=== PATIENT | male | born 1950 | race Caucasian/White ===

== ENCOUNTER 2017-02-13 08:38 | Inpatient (IN) | payer MEDICARE, OTHER ==
[2017-02-13] MEDS ORDERED: Sodium Chloride 0.9% 10 ML Syringe FLUSH PRN (09:21)
[2017-02-13] MEDS ORDERED: cefTRIAXone 2 GM in Sodium Chloride 0.9% 100 ML IV ONE (09:24)
[2017-02-13] MEDS ORDERED: HYDROmorphone 1 MG/ML Syringe IVPUSH ONE (09:24)
[2017-02-13] MEDS: Sodium Chloride 0.9% 1,000 ML IV SCH ×4 (09:45→22:33)
[2017-02-13] MEDS ORDERED: fentaNYL 100 MCG/2 ML SDV IVPUSH ONE (10:55)
--- NOTE | 2017-02-13 11:04 | CR ---
Right wrist: Two views of the right wrist were obtained. Comparison: No prior wrist exam. Severe joint space narrowing is noted off the distal navicular bone. Other joint spaces are preserved. Minimal calcifications are seen in the area of the triangular fibrocartilage which are felt to be incidental. Joint space narrowing is noted within the MCP joints of the second and third digits. Soft tissue swelling is identified posteriorly. No acute fracture or other bony abnormality is seen. Impression: 1. Degenerative change as noted above. 2. Diffuse soft tissue swelling seen posteriorly. Diagnostic code #3
--- NOTE | 2017-02-13 11:20 | US ---
Right upper extremity venous ultrasound: Duplex and color flow imaging was obtained of the right internal jugular, subclavian, axillary, brachial, basilic, cephalic, radial and ulnar veins. Technologist's note: Patient unable to flex or tolerate compression without moving, suboptimal augment, suboptimal visualization of radial and ulnar veins due to patient's inability to hold still Findings: Normal compression, augmentation and phasic flow is seen within other veins other than the radial and ulnar. Impression: 1. Poorly seen radial and ulnar veins as noted above. 2. Other portions of the right upper extremity venous ultrasound appear unremarkable. No findings of venous thrombosis is seen. Diagnostic code #2
[2017-02-13] MEDS ORDERED: Ketorolac 30 MG/ML SDV IVPUSH ONE (11:36)
--- NOTE | 2017-02-13 13:12 | EDM.PDOC ---
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 Right Hand Pain Score (Numeric/FACES): 9 - Related Data Allergies Allergy/AdvReac Type Severity Reaction Status Date / Time bee venom protein (honey bee) Allergy Swelling Verified 02/13/17 09:04 Home Meds: Home Meds LORazepam [LORazepam] 1 mg PO DAILY 02/13/17 [History] PARoxetine HCl [Paxil] 20 mg PO DAILY 02/13/17 [History] Past Medical History HEENT History: Reports: Impaired Vision Other HEENT History: wears glasses Gastrointestinal History: Reports: Other (See Below) Other Gastrointestinal History: IBS - Past Surgical History HEENT Surgical History: Reports: Tonsillectomy Musculoskeletal Surgical History: Reports: Arthroscopic Knee, Shoulder Surgery Other Musculoskeletal Surgeries/Procedures:: 3 shoulder surgery Social & Family History - Tobacco Use Smoking Status *Q: Current Every Day Smoker Years of Tobacco use: 50 Packs/Tins Daily: 1 - Caffeine Use Caffeine Use: Reports: Coffee, Soda - Recreational Drug Use Recreational Drug Use: No Course - Vital Signs Last Recorded V/S: Last Vital Signs Temp 99.5 F 02/13/17 08:59 Pulse 89 02/13/17 08:59 Resp 18 02/13/17 08:59 BP 149/115 H 02/13/17 08:59 Pulse Ox 91 L 02/13/17 08:59 - Orders/Labs/Meds Orders: Active Orders 24 hr Category Date Time Status Peripheral IV Care [RC] . DIRECTED Care 02/13/17 09:22 Active CULTURE BLOOD [BC] Stat Lab 02/13/17 11:00 Received CULTURE BLOOD [BC] Stat Lab 02/13/17 11:20 Received Sodium Chloride 0.9% [Normal Saline] 1,000 ml Med 02/13/17 09:30 Active IV ASDIRECTED Sodium Chloride 0.9% [Saline Flush] Med 02/13/17 09:21 Active 10 ml FLUSH ASDIRECTED PRN Blood Culture x2 Reflex Set [OM.PC] Stat Oth 02/13/17 09:23 Ordered Peripheral IV Insertion Adult [OM.PC] Stat Oth 02/13/17 09:21 Ordered Medication Orders Sodium Chloride (Normal Saline) 1,000 mls @ 125 mls/hr IV ASDIRECTED TONY Last Admin: 02/13/17 09:45 Dose: 125 mls/hr Sodium Chloride (Saline Flush) 10 ml FLUSH ASDIRECTED PRN PRN Reason: Keep Vein Open Last Admin: 02/13/17 09:43 Dose: 10 ml Labs: Laboratory Tests 02/13/17 02/13/17 02/13/17 Range/Units 09:30 09:30 09:30 WBC 14.58 H (4.23-9.07) K/mm3 RBC 4.65 (4.63-6.08) M/mm3 Hgb 14.2 (13.7-17.5) gm/L Hct 42.1 (40.1-51.0) % MCV 90.5 (79.0-92.2) fl MCH 30.5 (25.7-32.2) pg MCHC 33.7 (32.2-35.5) g/dl RDW Std Deviation 43.8 (35.1-43.9) fL Plt Count 190 (163-337) K/mm3 MPV 9.2 L (9.4-12.3) fl Neut % (Auto) 93.0 H (34.0-67.9) % Lymph % (Auto) 1.5 L (21.8-53.1) % [place] % (Auto) 5.1 L (5.3-12.2) % Eos % (Auto) 0 L (0.8-7.0) Baso % (Auto) 0.1 (0.1-1.2) % Neut # (Auto) 13.57 H (1.78-5.38) K/mm3 Lymph # (Auto) 0.22 L (1.32-3.57) K/mm3 [place] # (Auto) 0.74 (0.30-0.82) K/mm3 Eos # (Auto) 0.00 L (0.04-0.54) K/mm3 Baso # (Auto) 0.01 (0.01-0.08) K/mm3 Manual Slide Review Abnormal smear ESR 3 (0-15) mm/hr Sodium 141 (136-145) mEq/L Potassium 4.2 (3.5-5.1) mEq/L Chloride 107 (98-107) mEq/L Carbon Dioxide 25 (21-32) mEq/L Anion Gap 13.2 (5-15) BUN 21 H (7-18) mg/dL Creatinine 1.2 (0.7-1.3) mg/dL Est Cr Clr Drug Dosing 63.62 mL/min Estimated GFR (MDRD) > 60 (>60) mL/min BUN/Creatinine Ratio 17.5 (14-18) Glucose 132 H (80-115) mg/dL Calcium 9.1 (8.5-10.1) mg/dL Total Bilirubin 1.1 H (0.2-1.0) mg/dL AST 22 (15-37) U/L ALT 33 (16-63) U/L Alkaline Phosphatase 52 (46-116) U/L C-Reactive Protein < 0.2 (<1.0) mg/dL Total Protein 6.8 (6.4-8.2) g/dl Albumin 4.1 (3.4-5.0) g/dl Globulin 2.7 gm/dL Albumin/Globulin Ratio 1.5 (1-2) Meds: Medications Generic Name Dose Route Start Last Admin Trade Name Freq PRN Reason Stop Dose Admin Sodium Chloride 1,000 mls @ 125 mls/hr 02/13/17 09:30 02/13/17 09:45 Normal Saline IV 125 mls/hr ASDIRECTED TONY Administration Sodium Chloride 10 ml 02/13/17 09:21 02/13/17 09:43 Saline Flush FLUSH 10 ml ASDIRECTED PRN Administration Keep Vein Open Discontinued Medications Generic Name Dose Route Start Last Admin Trade Name Aisha PRN Reason Stop Dose Admin Fentanyl 100 mcg 02/13/17 10:55 02/13/17 11:15 Sublimaze IVPUSH 02/13/17 10:56 100 mcg ONETIME ONE Administration Hydromorphone HCl 1 mg 02/13/17 09:24 02/13/17 09:40 Dilaudid IVPUSH 02/13/17 09:25 1 mg ONETIME ONE Administration Ceftriaxone Sodium 2 gm/ 100 mls @ 200 mls/hr 02/13/17 09:24 02/13/17 09:45 Sodium Chloride IV 02/13/17 09:53 200 mls/hr ONETIME ONE Administration Ketorolac Tromethamine 30 mg 02/13/17 11:36 11/29/17 11:42 Toradol IVPUSH 02/13/17 11:37 30 mg ONETIME ONE Administration Departure - Discharge Information Referrals: Beck Zhang MD [Primary Care Provider] -
--- NOTE | 2017-02-13 13:59 | PCM.HP ---
<BrendonMartine M - Last Filed: 02/14/17 18:07> H&P History of Present Illness - General Date of Service: 02/13/17 Source of Information: Patient - History of Present Illness Initial Comments - Free Text/Narative: Jw is a 66yo male admitted to inpatient status from the ED this afternoon after presenting with acute onset of right hand and wrist swelling and pain last evening around 8pm. He did not get much sleep last night due to the pain. He denies f/c/s, no n/v/d. He is very tired and fatigued but no other systemic symptoms or constitutional symptoms. He tells me he is unsure what happened, no falls or scratches recently, however he has had some old abrasions on his hand for a while now, also unsure of how he got them. He plays tennis regularly but no recent falls or accidents with that. He has hx of anxiety for which he takes prozac and ativan PRN. He smokes around a pack of cigarettes per day. Patient is Full Code status PCP is Dr. Zhang with [facility] Onset of Symptoms: Reports: Gradual Duration of Symptoms: Reports: Day(s): (2) Location: Reports: Upper Extremity, Right (dorsum of right hand) Quality: Reports: Throbbing Severity: Moderate Improves with: Reports: None Worsens with: Reports: Movement Right Hand Pain Score (Numeric/FACES): 9 - Related Data Allergies/Adverse Reactions: Allergies Allergy/AdvReac Type Severity Reaction Status Date / Time bee venom protein (honey bee) Allergy Swelling Verified 02/13/17 09:04 Home Medications: Home Meds LORazepam [LORazepam] 1 mg PO DAILY 02/13/17 [History] PARoxetine HCl [Paxil] 20 mg PO DAILY 02/13/17 [History] Past Medical History HEENT History: Reports: Impaired Vision Other HEENT History: wears glasses Gastrointestinal History: Reports: Other (See Below) Other Gastrointestinal History: IBS - Past Surgical History HEENT Surgical History: Reports: Tonsillectomy Musculoskeletal Surgical History: Reports: Arthroscopic Knee, Shoulder Surgery Other Musculoskeletal Surgeries/Procedures:: 3 shoulder surgery Social & Family History - Tobacco Use Smoking Status *Q: Current Every Day Smoker Years of Tobacco use: 50 Packs/Tins Daily: 1 - Caffeine Use Caffeine Use: Reports: Coffee, Soda - Recreational Drug Use Recreational Drug Use: No H&P Review of Systems - Review of Systems: Review Of Systems: See Below General: Denies: Fever, Chills, Malaise, Weakness, Fatigue HEENT: Reports: No Symptoms Pulmonary: Reports: No Symptoms. Denies: Shortness of Breath, Cough Cardiovascular: Reports: No Symptoms. Denies: Chest Pain, Palpitations, Dyspnea on Exertion Gastrointestinal: Reports: No Symptoms. Denies: Diarrhea, Vomiting Genitourinary: Reports: No Symptoms Musculoskeletal: Reports: Arm Pain, Hand Pain Skin: Reports: Erythema Psychiatric: Reports: No Symptoms Neurological: Reports: No Symptoms Exam - Exam Exam: See Below - Vital Signs Vital Signs: Last Vital Signs Temp 99.5 F 02/13/17 08:59 Pulse 89 02/13/17 08:59 Resp 18 02/13/17 08:59 BP 149/115 H 02/13/17 08:59 Pulse Ox 91 L 02/13/17 08:59 Weight: 83.915 kg - Exam General: Alert, Oriented, Cooperative HEENT: Conjunctiva Clear, EOMI, Mucosa Moist & [place], Pupils Equal Neck: Supple Lungs: Clear to Auscultation, Normal Respiratory Effort Cardiovascular: Regular Rate, Regular Rhythm GI/Abdominal Exam: Normal Bowel Sounds, Soft, Non-Tender (Male) Exam: Deferred Rectal (Males) Exam: Deferred Back Exam: Normal Inspection Extremities: No Pedal Edema, Arm Pain, Other (right arm is in a volar splint- put on in ED- base of fingers are swollen and with erythema. CMS is + distally and = bilat. ) Peripheral Pulses: 2+: Radial (L), Dorsalis Pedis (L), Dorsalis Pedis (R) Skin: Warm, Dry Neurological: Cranial Nerves Intact Neuro Extensive - Mental Status: Alert, Oriented x3, Normal Mood/Affect, Normal Cognition, Memory Intact Neuro Extensive - Motor, Sensory, Reflexes: CN II-XII Intact, Normal Gait Psychiatric: Alert, Normal Affect, Normal Mood - Patient Data Result Diagrams: 02/14/17 05:55 02/14/17 05:55 *Q Meaningful Use (ADM) - VTE *Q VTE Criteria *Q: - Stroke *Q Stroke Criteria *Q: - AMI *Q AMI Criteria *Q: - Problem List (1) Cellulitis of hand SNOMED Code(s): 12152612 ICD Code: L03.119 - CELLULITIS OF UNSPECIFIED PART OF LIMB Status: Acute Priority: High Current Visit: Yes (2) Tobacco use disorder SNOMED Code(s): 271669782 ICD Code: F17.200 - NICOTINE DEPENDENCE, UNSPECIFIED, UNCOMPLICATED Status : Chronic Priority: Medium Current Visit: Yes Problem List Initiated/Reviewed/Updated: Yes Orders Last 24hrs: Medication Orders Sodium Chloride (Normal Saline) 1,000 mls @ 125 mls/hr IV ASDIRECTED TONY Last Admin: 02/13/17 09:45 Dose: 125 mls/hr Sodium Chloride (Saline Flush) 10 ml FLUSH ASDIRECTED PRN PRN Reason: Keep Vein Open Last Admin: 02/13/17 09:43 Dose: 10 ml Assessment/Plan Comment:: I/P: Cellulitis of Rt hand -IV Rocephin rec'd in ED, continue with this Q24 hours -Florastor -Xray of wrist obtained with degenerative changes noted and diffuse soft tissue swelling posteriorly -Venous doppler of Rt UE in ED and was negative for blood clot/DVT -Dr. Bailey, Orthopedics was consulted in ED and did not feel there was tendon involvement -Elevate -Pain medications and NSAIDS PRN Tobacco Use Disorder -Smoking cessation advised/education -Nicotine patch Chronic conditions: IBS by hx Other: GI prophylax with pepcid DVT prohylax with Teds/ambulation CM/SW for assist with dc planning Patient is full code status. PCP is Dr. Zhang with [facility] in [place]. <Nancy Martin M - Last Filed: 02/14/17 19:07> H&P History of Present Illness - General Admit Problem/Dx: Admission Diagnosis/Problem Admission Diagnosis/Problem Cellulitis and abscess of hand Exam - Vital Signs Vital Signs: Last Vital Signs Temp 36.4 C 02/14/17 15:51 Pulse 81 02/14/17 15:51 Resp 18 02/14/17 15:51 BP 108/61 02/14/17 15:51 Pulse Ox 93 L 02/14/17 15:51 - Patient Data Lab Results Last 24 hrs: Laboratory Results - last 24 hr 02/13/17 02/14/17 02/14/17 Range/Units 18:28 05:55 05:55 WBC 11.96 H (4.23-9.07) K/mm3 RBC 3.99 L (4.63-6.08) M/mm3 Hgb 12.3 L (13.7-17.5) gm/L Hct 36.5 L (40.1-51.0) % MCV 91.5 (79.0-92.2) fl MCH 30.8 (25.7-32.2) pg MCHC 33.7 (32.2-35.5) g/dl RDW Std Deviation 44.8 H (35.1-43.9) fL Plt Count 136 L (163-337) K/mm3 MPV 9.6 (9.4-12.3) fl Neut % (Auto) 86.7 H (34.0-67.9) % Lymph % (Auto) 4.0 L (21.8-53.1) % [place] % (Auto) 6.3 (5.3-12.2) % Eos % (Auto) 0.3 L (0.8-7.0) Baso % (Auto) 0.1 (0.1-1.2) % Neut # (Auto) 10.38 H (1.78-5.38) K/mm3 Lymph # (Auto) 0.48 L (1.32-3.57) K/mm3 [place] # (Auto) 0.75 (0.30-0.82) K/mm3 Eos # (Auto) 0.03 L (0.04-0.54) K/mm3 Baso # (Auto) 0.01 (0.01-0.08) K/mm3 Manual Slide Review Abnormal smear Sodium 140 (136-145) mEq/L Potassium 4.2 (3.5-5.1) mEq/L Chloride 111 H (98-107) mEq/L Carbon Dioxide 18 L (21-32) mEq/L Anion Gap 15.2 H (5-15) BUN 28 H (7-18) mg/dL Creatinine 1.2 (0.7-1.3) mg/dL Est Cr Clr Drug Dosing 63.62 mL/min Estimated GFR (MDRD) > 60 (>60) mL/min BUN/Creatinine Ratio 23.3 H (14-18) Glucose 147 H (80-115) mg/dL Lactic Acid 2.5 H (0.4-2.0) mmol/L Calcium 7.2 L (8.5-10.1) mg/dL Magnesium 1.6 L (1.8-2.4) mg/dl Creatine Kinase (39-308) U/L CK-MB (CK-2) (0-3.6) ng/ml Troponin I (0.00-0.056) ng/mL C-Reactive Protein 6.0 H* (<1.0) mg/dL Triglycerides (<150) mg/dL Cholesterol (<200) mg/dL LDL Cholesterol Direct (<100) mg/dL HDL Cholesterol (40-59) mg/dL 02/14/17 02/14/17 02/14/17 Range/Units 05:55 05:55 10:15 WBC (4.23-9.07) K/mm3 RBC (4.63-6.08) M/mm3 Hgb (13.7-17.5) gm/L Hct (40.1-51.0) % MCV (79.0-92.2) fl MCH (25.7-32.2) pg MCHC (32.2-35.5) g/dl RDW Std Deviation (35.1-43.9) fL Plt Count (163-337) K/mm3 MPV (9.4-12.3) fl Neut % (Auto) (34.0-67.9) % Lymph % (Auto) (21.8-53.1) % [place] % (Auto) (5.3-12.2) % Eos % (Auto) (0.8-7.0) Baso % (Auto) (0.1-1.2) % Neut # (Auto) (1.78-5.38) K/mm3 Lymph # (Auto) (1.32-3.57) K/mm3 [place] # (Auto) (0.30-0.82) K/mm3 Eos # (Auto) (0.04-0.54) K/mm3 Baso # (Auto) (0.01-0.08) K/mm3 Manual Slide Review Sodium (136-145) mEq/L Potassium (3.5-5.1) mEq/L Chloride (98-107) mEq/L Carbon Dioxide (21-32) mEq/L Anion Gap (5-15) BUN (7-18) mg/dL Creatinine (0.7-1.3) mg/dL Est Cr Clr Drug Dosing mL/min Estimated GFR (MDRD) (>60) mL/min BUN/Creatinine Ratio (14-18) Glucose (80-115) mg/dL Lactic Acid 1.5 (0.4-2.0) mmol/L Calcium (8.5-10.1) mg/dL Magnesium (1.8-2.4) mg/dl Creatine Kinase (39-308) U/L CK-MB (CK-2) (0-3.6) ng/ml Troponin I 0.059 H* 0.102 H* (0.00-0.056) ng/mL C-Reactive Protein (<1.0) mg/dL Triglycerides (<150) mg/dL Cholesterol (<200) mg/dL LDL Cholesterol Direct (<100) mg/dL HDL Cholesterol (40-59) mg/dL 02/14/17 02/14/17 02/14/17 Range/Units 10:15 10:15 17:10 WBC (4.23-9.07) K/mm3 RBC (4.63-6.08) M/mm3 Hgb (13.7-17.5) gm/L Hct (40.1-51.0) % MCV (79.0-92.2) fl MCH (25.7-32.2) pg MCHC (32.2-35.5) g/dl RDW Std Deviation (35.1-43.9) fL Plt Count (163-337) K/mm3 MPV (9.4-12.3) fl Neut % (Auto) (34.0-67.9) % Lymph % (Auto) (21.8-53.1) % [place] % (Auto) (5.3-12.2) % Eos % (Auto) (0.8-7.0) Baso % (Auto) (0.1-1.2) % Neut # (Auto) (1.78-5.38) K/mm3 Lymph # (Auto) (1.32-3.57) K/mm3 [place] # (Auto) (0.30-0.82) K/mm3 Eos # (Auto) (0.04-0.54) K/mm3 Baso # (Auto) (0.01-0.08) K/mm3 Manual Slide Review Sodium (136-145) mEq/L Potassium (3.5-5.1) mEq/L Chloride (98-107) mEq/L Carbon Dioxide (21-32) mEq/L Anion Gap (5-15) BUN (7-18) mg/dL Creatinine (0.7-1.3) mg/dL Est Cr Clr Drug Dosing mL/min Estimated GFR (MDRD) (>60) mL/min BUN/Creatinine Ratio (14-18) Glucose (80-115) mg/dL Lactic Acid 2.4 H (0.4-2.0) mmol/L Calcium (8.5-10.1) mg/dL Magnesium (1.8-2.4) mg/dl Creatine Kinase 155 (39-308) U/L CK-MB (CK-2) (0-3.6) ng/ml Troponin I 0.173 H* (0.00-0.056) ng/mL C-Reactive Protein (<1.0) mg/dL Triglycerides 124 (<150) mg/dL Cholesterol 150 (<200) mg/dL LDL Cholesterol Direct 78 (<100) mg/dL HDL Cholesterol 43.0 (40-59) mg/dL 02/14/17 Range/Units 17:10 WBC (4.23-9.07) K/mm3 RBC (4.63-6.08) M/mm3 Hgb (13.7-17.5) gm/L Hct (40.1-51.0) % MCV (79.0-92.2) fl MCH (25.7-32.2) pg MCHC (32.2-35.5) g/dl RDW Std Deviation (35.1-43.9) fL Plt Count (163-337) K/mm3 MPV (9.4-12.3) fl Neut % (Auto) (34.0-67.9) % Lymph % (Auto) (21.8-53.1) % [place] % (Auto) (5.3-12.2) % Eos % (Auto) (0.8-7.0) Baso % (Auto) (0.1-1.2) % Neut # (Auto) (1.78-5.38) K/mm3 Lymph # (Auto) (1.32-3.57) K/mm3 [place] # (Auto) (0.30-0.82) K/mm3 Eos # (Auto) (0.04-0.54) K/mm3 Baso # (Auto) (0.01-0.08) K/mm3 Manual Slide Review Sodium (136-145) mEq/L Potassium (3.5-5.1) mEq/L Chloride (98-107) mEq/L Carbon Dioxide (21-32) mEq/L Anion Gap (5-15) BUN (7-18) mg/dL Creatinine (0.7-1.3) mg/dL Est Cr Clr Drug Dosing mL/min Estimated GFR (MDRD) (>60) mL/min BUN/Creatinine Ratio (14-18) Glucose (80-115) mg/dL Lactic Acid (0.4-2.0) mmol/L Calcium (8.5-10.1) mg/dL Magnesium (1.8-2.4) mg/dl Creatine Kinase (39-308) U/L CK-MB (CK-2) 2.0 (0-3.6) ng/ml Troponin I (0.00-0.056) ng/mL C-Reactive Protein (<1.0) mg/dL Triglycerides (<150) mg/dL Cholesterol (<200) mg/dL LDL Cholesterol Direct (<100) mg/dL HDL Cholesterol (40-59) mg/dL Result Diagrams: 02/14/17 05:55 02/14/17 05:55 *Q Meaningful Use (ADM) - VTE *Q VTE Criteria *Q: - Stroke *Q Stroke Criteria *Q: - AMI *Q AMI Criteria *Q: Orders Last 24hrs: Active Orders 24 hr Category Date Time Status EKG 12 Lead [EKG Documentation Completion] [RC] STAT Care 02/14/17 11:11 Active EKG 12 Lead [EKG Documentation Completion] [RC] STAT Care 02/14/17 17:48 Active Notify Provider Consults [RC] ASDIRECTED Care 02/13/17 18:19 Active Consult to Physician [CONS] Routine Cons 02/13/17 18:18 Active BASIC METABOLIC PANEL,BMP [CHEM] AM Lab 02/15/17 05:11 Ordered BASIC METABOLIC PANEL,BMP [CHEM] AM Lab 02/16/17 05:11 Ordered C-REACTIVE PROTEIN [CHEM] AM Lab 02/15/17 05:11 Ordered C-REACTIVE PROTEIN [CHEM] AM Lab 02/16/17 05:11 Ordered CBC WITH AUTO DIFF [HEME] AM Lab 02/15/17 05:11 Ordered CBC WITH AUTO DIFF [HEME] AM Lab 02/16/17 05:11 Ordered CULTURE BLOOD [BC] Routine Lab 02/14/17 10:15 Received CULTURE BLOOD [BC] Stat Lab 02/14/17 10:10 Received MAGNESIUM [CHEM] AM Lab 02/15/17 05:11 Ordered MAGNESIUM [CHEM] AM Lab 02/16/17 05:11 Ordered VANCOMYCIN TROUGH [CHEM] Timed Lab 02/15/17 08:30 Ordered Famotidine [Pepcid] Med 02/13/17 21:00 Active 20 mg PO BID Ketorolac [Toradol] Med 02/14/17 18:20 Active 15 mg IVPUSH Q6H PRN PARoxetine [Paxil] Med 02/14/17 09:00 Active 20 mg PO DAILY Piperacillin/Tazobactam [Zosyn] 4.5 gm Med 02/14/17 06:00 Active Sodium Chloride 0.9% [Normal Saline] 100 ml IV Q8H Remove Patch Med 02/14/17 09:00 Active 1 ea TRDERM DAILY Saccharomyces Boulardii [Florastor] Med 02/13/17 21:00 Active 250 mg PO BID Vancomycin 1 gm Med 02/14/17 09:00 Active Vancomycin 250 mg Sodium Chloride 0.9% [Normal Saline] 250 ml IV Q12H Vancomycin Pharmacy to Dose [Pharmacy to Dose - Med 02/13/17 18:30 Active Vancomycin] 1 dose .XX ASDIRECTED Medication Orders Acetaminophen (Tylenol) 650 mg PO Q4H PRN PRN Reason: Pain (Mild 1-3)/fever Hydrocodone Bitart/Acetaminophen ([place] 325-5 Mg) 1 tab PO Q4H PRN PRN Reason: Pain (moderate 4-6) Famotidine (Pepcid) 20 mg PO BID TONY Last Admin: 02/14/17 09:08 Dose: 20 mg Admin: 02/13/17 20:47 Dose: 20 mg Hydromorphone HCl (Dilaudid) 0.5 mg IVPUSH Q3H PRN PRN Reason: Severe pain (7-10) Last Admin: 02/13/17 16:23 Dose: 0.5 mg Sodium Chloride (Normal Saline) 1,000 mls @ 125 mls/hr IV ASDIRECTED [facility] Last Admin: 02/14/17 13:21 Dose: 125 mls/hr Infusion: 02/14/17 13:21 Dose: 125 mls/hr Admin: 02/14/17 05:41 Dose: 125 mls/hr Infusion: 02/14/17 05:41 Dose: 125 mls/hr Admin: 02/14/17 00:44 Dose: 125 mls/hr Infusion: 02/14/17 00:44 Dose: 125 mls/hr Admin: 02/13/17 17:32 Dose: 125 mls/hr Infusion: 02/13/17 17:32 Dose: 125 mls/hr Admin: 02/13/17 09:45 Dose: 125 mls/hr Piperacillin Sod/Tazobactam (Sod 4.5 gm/ Sodium Chloride) 100 mls @ 25 mls/hr IV Q8H [facility] Last Admin: 02/14/17 16:08 Dose: 25 mls/hr Infusion: 02/14/17 10:43 Dose: 25 mls/hr Admin: 02/14/17 06:43 Dose: 25 mls/hr Vancomycin HCl 1 gm/Vancomycin HCl 250 mg/ Sodium Chloride 250 mls @ 166.667 mls/hr IV Q12H [facility] Last Admin: 02/14/17 10:19 Dose: 166.667 mls/hr Ketorolac Tromethamine (Toradol) 15 mg IVPUSH Q6H PRN PRN Reason: Pain Lorazepam (Ativan) 1 mg PO Q4H PRN PRN Reason: anxiety/restlessness Miscellaneous Information (Remove Patch) 1 ea TRDERM DAILY [facility] Last Admin: 02/14/17 11:23 Dose: Nicotine (Habitrol) 21 mg TRDERM DAILY [facility] Last Admin: 02/14/17 10:19 Dose: Not Given Admin: 02/13/17 14:34 Dose: Not Given Ondansetron HCl (Zofran Odt) 4 mg PO Q4H PRN PRN Reason: nausea, able to take PO Paroxetine HCl (Paxil) 20 mg PO DAILY [facility] Last Admin: 02/14/17 09:08 Dose: 20 mg Saccharomyces Boulardii (Florastor) 250 mg PO BID [facility] Last Admin: 02/14/17 09:09 Dose: 250 mg Admin: 02/13/17 20:47 Dose: 250 mg Senna/Docusate Sodium (Senna Plus) 1 tab PO BID PRN PRN Reason: Constipation Sodium Chloride (Saline Flush) 10 ml FLUSH ASDIRECTED PRN PRN Reason: Keep Vein Open Last Admin: 02/13/17 09:43 Dose: 10 ml Temazepam (Restoril) 7.5 mg PO BEDTIME PRN PRN Reason: Sleep Vancomycin HCl (Pharmacy To Dose - Vancomycin) 1 dose .XX ASDIRECTED [facility] Assessment/Plan Comment:: Will monitor neurovascular evaluation; Ortho eval. Follow TnI/ECG trend.
[2017-02-13] MEDS ORDERED: Temazepam 7.5 MG Cap PO PRN (14:05)
[2017-02-13] MEDS ORDERED: Ketorolac 30 MG/ML SDV IV PRN (14:05)
[2017-02-13] MEDS ORDERED: Acetaminophen 325 MG Tab PO PRN (14:05)
[2017-02-13] MEDS ORDERED: Ondansetron 4 MG Tab.DIS PO PRN (14:05)
[2017-02-13] MEDS ORDERED: Acetaminophen/HYDROcodone 325-5 MG Tab PO PRN (14:05)
--- NOTE | 2017-02-13 14:09 | EDM.PDOC ---
ED HPI GENERAL MEDICAL PROBLEM - General Chief Complaint: Upper Extremity Injury/Pain Stated Complaint: R HAND PAIN AND SWELLING Time Seen by Provider: 02/13/17 09:13 Source of Information: Reports: Patient, Family History Limitations: Reports: No Limitations - History of Present Illness INITIAL COMMENTS - FREE TEXT/NARRATIVE: The patient presents with right arm pain, edema and redness. This started last night. He denies fever or chills. He denies injury his hand. He did play some tennis yesterday but nothing occurred then. He had a couple abrasions to his hand. That happened at his house. He denies chest pain, shortness of breath, abdominal pain, nausea or vomiting. 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 Right Hand Pain Score (Numeric/FACES): 9 - Related Data Allergies Allergy/AdvReac Type Severity Reaction Status Date / Time bee venom protein (honey bee) Allergy Swelling Verified 02/13/17 09:04 Home Meds: Home Meds LORazepam [LORazepam] 1 mg PO DAILY 02/13/17 [History] PARoxetine HCl [Paxil] 20 mg PO DAILY 02/13/17 [History] Past Medical History HEENT History: Reports: Impaired Vision Other HEENT History: wears glasses Gastrointestinal History: Reports: Other (See Below) Other Gastrointestinal History: IBS - Past Surgical History HEENT Surgical History: Reports: Tonsillectomy Musculoskeletal Surgical History: Reports: Arthroscopic Knee, Shoulder Surgery Other Musculoskeletal Surgeries/Procedures:: 3 shoulder surgery Social & Family History - Tobacco Use Smoking Status *Q: Current Every Day Smoker Years of Tobacco use: 50 Packs/Tins Daily: 1 - Caffeine Use Caffeine Use: Reports: Coffee, Soda - Recreational Drug Use Recreational Drug Use: No Review of Systems - Review of Systems Review Of Systems: See Below Constitutional: Reports: No Symptoms Eyes: Reports: No Symptoms Ears: Reports: No Symptoms Nose: Reports: No Symptoms Mouth/Throat: Reports: No Symptoms Respiratory: Reports: No Symptoms Cardiovascular: Reports: No Symptoms GI/Abdominal: Reports: No Symptoms Genitourinary: Reports: No Symptoms Musculoskeletal: Reports: Other (Right arm pain and edema) ED EXAM, GENERAL - Physical Exam Exam: See Below Exam Limited By: No Limitations General Appearance: Alert, No Apparent Distress Ears: Normal External Exam Nose: Normal Inspection Head: Atraumatic, Normocephalic Neck: Normal Inspection Respiratory/Chest: No Respiratory Distress, Lungs Clear, Normal Breath Sounds Cardiovascular: Regular Rate, Rhythm, No Edema, No Murmur Peripheral Pulses: 2+: Radial (L), Radial (R), Dorsalis Pedis (L), Dorsalis Pedis (R) GI/Abdominal: Normal Bowel Sounds, Soft, Non-Tender Back Exam: Normal Inspection Extremities: No Pedal Edema, Arm Pain, Other (His right wrist and hand has erythema, edema and pain upon palpation. He has 2 abrasions to the dorsum of his hand.) ED TRAUMA EXTREMITY PROCEDURES - Splinting Right Upper Extremity Splint Site: Wrist Pre-Procedure NV Status: Normal Post-Procedure NV Status: Normal Splint Material: Fiberglass Splint Design: Volar Applied & Form Fitted By: Provider Provider Post-Splint Application NV Check: NV Status Normal, Good Position Complications: No Course - Vital Signs Last Recorded V/S: Last Vital Signs Temp 99.5 F 02/13/17 08:59 Pulse 89 02/13/17 08:59 Resp 18 02/13/17 08:59 BP 149/115 H 02/13/17 08:59 Pulse Ox 91 L 02/13/17 08:59 - Orders/Labs/Meds Orders: Active Orders 24 hr Category Date Time Status Peripheral IV Care [RC] . DIRECTED Care 02/13/17 09:22 Active CULTURE BLOOD [BC] Stat Lab 02/13/17 11:00 Received CULTURE BLOOD [BC] Stat Lab 02/13/17 11:20 Received Sodium Chloride 0.9% [Normal Saline] 1,000 ml Med 02/13/17 09:30 Active IV ASDIRECTED Sodium Chloride 0.9% [Saline Flush] Med 02/13/17 09:21 Active 10 ml FLUSH ASDIRECTED PRN Blood Culture x2 Reflex Set [OM.PC] Stat Oth 02/13/17 09:23 Ordered Peripheral IV Insertion Adult [OM.PC] Stat Oth 02/13/17 09:21 Ordered Medication Orders Sodium Chloride (Normal Saline) 1,000 mls @ 125 mls/hr IV ASDIRECTED TONY Last Admin: 02/13/17 09:45 Dose: 125 mls/hr Sodium Chloride (Saline Flush) 10 ml FLUSH ASDIRECTED PRN PRN Reason: Keep Vein Open Last Admin: 02/13/17 09:43 Dose: 10 ml Labs: Laboratory Tests 02/13/17 02/13/17 02/13/17 Range/Units 09:30 09:30 09:30 WBC 14.58 H (4.23-9.07) K/mm3 RBC 4.65 (4.63-6.08) M/mm3 Hgb 14.2 (13.7-17.5) gm/L Hct 42.1 (40.1-51.0) % MCV 90.5 (79.0-92.2) fl MCH 30.5 (25.7-32.2) pg MCHC 33.7 (32.2-35.5) g/dl RDW Std Deviation 43.8 (35.1-43.9) fL Plt Count 190 (163-337) K/mm3 MPV 9.2 L (9.4-12.3) fl Neut % (Auto) 93.0 H (34.0-67.9) % Lymph % (Auto) 1.5 L (21.8-53.1) % [place] % (Auto) 5.1 L (5.3-12.2) % Eos % (Auto) 0 L (0.8-7.0) Baso % (Auto) 0.1 (0.1-1.2) % Neut # (Auto) 13.57 H (1.78-5.38) K/mm3 Lymph # (Auto) 0.22 L (1.32-3.57) K/mm3 [place] # (Auto) 0.74 (0.30-0.82) K/mm3 Eos # (Auto) 0.00 L (0.04-0.54) K/mm3 Baso # (Auto) 0.01 (0.01-0.08) K/mm3 Manual Slide Review Abnormal smear ESR 3 (0-15) mm/hr Sodium 141 (136-145) mEq/L Potassium 4.2 (3.5-5.1) mEq/L Chloride 107 (98-107) mEq/L Carbon Dioxide 25 (21-32) mEq/L Anion Gap 13.2 (5-15) BUN 21 H (7-18) mg/dL Creatinine 1.2 (0.7-1.3) mg/dL Est Cr Clr Drug Dosing 63.62 mL/min Estimated GFR (MDRD) > 60 (>60) mL/min BUN/Creatinine Ratio 17.5 (14-18) Glucose 132 H (80-115) mg/dL Calcium 9.1 (8.5-10.1) mg/dL Total Bilirubin 1.1 H (0.2-1.0) mg/dL AST 22 (15-37) U/L ALT 33 (16-63) U/L Alkaline Phosphatase 52 (46-116) U/L C-Reactive Protein < 0.2 (<1.0) mg/dL Total Protein 6.8 (6.4-8.2) g/dl Albumin 4.1 (3.4-5.0) g/dl Globulin 2.7 gm/dL Albumin/Globulin Ratio 1.5 (1-2) Meds: Medications Generic Name Dose Route Start Last Admin Trade Name Freq PRN Reason Stop Dose Admin Sodium Chloride 1,000 mls @ 125 mls/hr 02/13/17 09:30 02/13/17 09:45 Normal Saline IV 125 mls/hr ASDIRECTED TONY Administration Sodium Chloride 10 ml 02/13/17 09:21 02/13/17 09:43 Saline Flush FLUSH 10 ml ASDIRECTED PRN Administration Keep Vein Open Discontinued Medications Generic Name Dose Route Start Last Admin Trade Name Freq PRN Reason Stop Dose Admin Fentanyl 100 mcg 02/13/17 10:55 02/13/17 11:15 Sublimaze IVPUSH 02/13/17 10:56 100 mcg ONETIME ONE Administration Hydromorphone HCl 1 mg 02/13/17 09:24 02/13/17 09:40 Dilaudid IVPUSH 02/13/17 09:25 1 mg ONETIME ONE Administration Ceftriaxone Sodium 2 gm/ 100 mls @ 200 mls/hr 02/13/17 09:24 02/13/17 09:45 Sodium Chloride IV 02/13/17 09:53 200 mls/hr ONETIME ONE Administration Ketorolac Tromethamine 30 mg 02/13/17 11:36 02/13/17 11:42 Toradol IVPUSH 02/13/17 11:37 30 mg ONETIME ONE Administration - Re-Assessments/Exams Free Text/Narrative Re-Assessment/Exam: 02/13/17 14:06 I ordered an IV saline lock, labs, x-ray, US, rocephin 2 grams IV, blood cultures, and dilaudid for pain. His WBC was elevated at 14. His x-ray shows some degenerative changes. His US shows no DVT. He had more pain so I ordered fentanyl 100mcg IV and toradol 30mg IV. I feel he needs to be admitted. I called Dr Martin and she agreed but she wanted Dr Bailey to take a look and he agreed it is cellulitis. Departure - Departure Time of Disposition: 14:10 Disposition: Admitted As Inpatient 65 Condition: Good Clinical Impression: Cellulitis of right hand - Discharge Information - My Orders Last 24 Hours: My Active Orders 02/13/17 09:21 Sodium Chloride 0.9% [Saline Flush] 10 ml FLUSH ASDIRECTED PRN Peripheral IV Insertion Adult [OM.PC] Stat 02/13/17 09:22 Peripheral IV Care [RC] . DIRECTED 02/13/17 09:23 Blood Culture x2 Reflex Set [OM.PC] Stat 02/13/17 09:30 Sodium Chloride 0.9% [Normal Saline] 1,000 ml IV ASDIRECTED 02/13/17 11:00 CULTURE BLOOD [BC] Stat 02/13/17 11:20 CULTURE BLOOD [BC] Stat - Assessment/Plan Last 24 Hours: My Active Orders 02/13/17 09:21 Sodium Chloride 0.9% [Saline Flush] 10 ml FLUSH ASDIRECTED PRN Peripheral IV Insertion Adult [OM.PC] Stat 02/13/17 09:22 Peripheral IV Care [RC] . DIRECTED 02/13/17 09:23 Blood Culture x2 Reflex Set [OM.PC] Stat 02/13/17 09:30 Sodium Chloride 0.9% [Normal Saline] 1,000 ml IV ASDIRECTED 02/13/17 11:00 CULTURE BLOOD [BC] Stat 02/13/17 11:20 CULTURE BLOOD [BC] Stat
[2017-02-13] MEDS: Nicotine 21 MG/24 Hr Patch TRDERM SCH (14:34)
[2017-02-13] MEDS: Ibuprofen 600 MG Tab PO PRN (14:40)
[2017-02-13] MEDS ORDERED: HYDROmorphone 0.5 MG/0.5 ML Syringe IVPUSH PRN (16:12)
[2017-02-13] MEDS ORDERED: Sodium Chloride 0.9% 500 ML IV SCH (16:45)
[2017-02-13] MEDS ORDERED: Piperacillin/Tazobactam 4.5 GM in Sodium Chloride 0.9% 100 ML IV ONE ×2 (18:30→18:39)
[2017-02-13] MEDS ORDERED: Vancomycin 1 GM, Vancomycin 250 MG in Sodium Chloride 0.9% 250 ML IV SCH ×3 (20:00→21:00)
[2017-02-13] MEDS: Famotidine 20 MG Tab PO SCH (20:47)
[2017-02-13] MEDS: Saccharomyces Boulardii (Probiotic) 250 MG Cap PO SCH (20:47)
[2017-02-13] MEDS ORDERED: Sodium Chloride 0.9% 1,000 ML IV SCH (21:30)
[2017-02-14] MEDS: Ibuprofen 600 MG Tab PO PRN (00:27)
[2017-02-14] MEDS: Sodium Chloride 0.9% 1,000 ML IV SCH ×4 (00:44→21:53)
[2017-02-14] MEDS ORDERED: Ketorolac 30 MG/ML SDV IVPUSH SCH (06:30)
[2017-02-14] MEDS: Piperacillin/Tazobactam 4.5 GM in Sodium Chloride 0.9% 100 ML IV SCH ×3 (06:43→21:06)
[2017-02-14] MEDS ORDERED: Sodium Chloride 0.9% 1,000 ML IV SCH (06:45)
[2017-02-14] MEDS ORDERED: Magnesium Sulfate/Water 2 GM in Premix Bag 1 BAG IV ONE (08:17)
[2017-02-14] MEDS ORDERED: Vancomycin 1 GM, Vancomycin 250 MG in Sodium Chloride 0.9% 500 ML IV SCH (09:00)
[2017-02-14] MEDS ORDERED: Iopamidol 612 MG/ML 100 ML Bottle IVPUSH ONE (09:03)
[2017-02-14] MEDS ORDERED: Sodium Chloride 0.9% 10 ML Syringe FLUSH PRN (09:03)
[2017-02-14] MEDS: Famotidine 20 MG Tab PO SCH ×2 (09:08→20:52)
[2017-02-14] MEDS: PARoxetine 20 MG Tab PO SCH (09:08)
[2017-02-14] MEDS: Saccharomyces Boulardii (Probiotic) 250 MG Cap PO SCH ×2 (09:09→20:52)
[2017-02-14] MEDS: Nicotine 21 MG/24 Hr Patch TRDERM SCH (10:19)
[2017-02-14] MEDS: Ketorolac 15 MG/ML SDV IVPUSH SCH ×2 (10:19→13:22)
[2017-02-14] MEDS: Vancomycin 1 GM, Vancomycin 250 MG in Sodium Chloride 0.9% 250 ML IV SCH ×2 (10:19→20:55)
--- NOTE | 2017-02-14 10:53 | CT ---
CT right hand Technique: Multiple axial sections through the hand were obtained. Intravenous contrast was utilized. Reconstructed coronal and sagittal images were obtained. Findings: Diffuse subcutaneous edema is seen as well as skin thickening. No focal fluid collections are appreciated. No discrete abnormality is seen within the adjacent muscles. No bony erosion is identified. Joint space narrowing is noted within the second and third MCP joints. Mild deformity is noted within the distal fifth metacarpal likely due to old healed fracture. Impression: 1. Diffuse subcutaneous soft tissue edema with skin thickening. Findings compatible with rather prominent cellulitis. 2. No definite fluid collections of abscess are seen at this time. 3. Other incidental findings. Diagnostic code #3
--- NOTE | 2017-02-14 12:48 | PCM.PN ---
<Ramakrishna Guardado - Last Filed: 02/14/17 15:17> - General Info Date of Service: 02/14/17 Admission Dx/Problem (Free Text): Cellulitis of right extremity Subjective Update: Patient was seen today as he was moving about his room. He does report improved pain. Toradol scheduled this morning and he has had good response. IV antibiotics continue. He was hypotensive throughout the night after multiple fluid boluses. 500 mL bolus was given this a.m. and he seemed to respond to it. Blood pressure has improved. Denies any symptoms. Troponin was ordered this a.m. and was elevated. Repeat troponin ordered several hours later and had increased. Certainly repeat troponin will be ordered for 5:30 tonight. Lactic acid is remained stable day. Kidney function is good. Magnesium was low this morning and was supplemented. Functional Status: Reports: Pain Controlled, Tolerating Diet, Ambulating, Urinating. Denies: New Symptoms - Review of Systems General: Reports: Weakness, Fatigue, Chills, Night Sweats. Denies: Fever, Malaise HEENT: Reports: No Symptoms Pulmonary: Reports: Shortness of Breath (last night that has since resolved ) Cardiovascular: Reports: No Symptoms Gastrointestinal: Reports: No Symptoms Genitourinary: Reports: No Symptoms Musculoskeletal: Reports: No Symptoms Skin: Reports: No Symptoms Neurological: Reports: No Symptoms Psychiatric: Reports: No Symptoms - Patient Data Vitals - Most Recent: Last Vital Signs Temp 97.9 F 02/14/17 08:00 Pulse 87 02/14/17 08:15 Resp 20 02/14/17 08:15 BP 99/53 L 02/14/17 08:15 Pulse Ox 90 L 02/14/17 08:15 Weight - Most Recent: 85.638 kg I&O - Last 24 Hours: Intake & Output 02/13/17 02/14/17 02/14/17 22:59 06:59 14:59 Intake Total 1120 450 600 Output Total 300 300 Balance 820 150 600 Lab Results Last 24 Hours: Laboratory Results - last 24 hr 02/13/17 02/14/17 02/14/17 Range/Units 18:28 05:55 05:55 WBC 11.96 H (4.23-9.07) K/mm3 RBC 3.99 L (4.63-6.08) M/mm3 Hgb 12.3 L (13.7-17.5) gm/L Hct 36.5 L (40.1-51.0) % MCV 91.5 (79.0-92.2) fl MCH 30.8 (25.7-32.2) pg MCHC 33.7 (32.2-35.5) g/dl RDW Std Deviation 44.8 H (35.1-43.9) fL Plt Count 136 L (163-337) K/mm3 MPV 9.6 (9.4-12.3) fl Neut % (Auto) 86.7 H (34.0-67.9) % Lymph % (Auto) 4.0 L (21.8-53.1) % Ocean % (Auto) 6.3 (5.3-12.2) % Eos % (Auto) 0.3 L (0.8-7.0) Baso % (Auto) 0.1 (0.1-1.2) % Neut # (Auto) 10.38 H (1.78-5.38) K/mm3 Lymph # (Auto) 0.48 L (1.32-3.57) K/mm3 Ocean # (Auto) 0.75 (0.30-0.82) K/mm3 Eos # (Auto) 0.03 L (0.04-0.54) K/mm3 Baso # (Auto) 0.01 (0.01-0.08) K/mm3 Manual Slide Review Abnormal smear Sodium 140 (136-145) mEq/L Potassium 4.2 (3.5-5.1) mEq/L Chloride 111 H (98-107) mEq/L Carbon Dioxide 18 L (21-32) mEq/L Anion Gap 15.2 H (5-15) BUN 28 H (7-18) mg/dL Creatinine 1.2 (0.7-1.3) mg/dL Est Cr Clr Drug Dosing 63.62 mL/min Estimated GFR (MDRD) > 60 (>60) mL/min BUN/Creatinine Ratio 23.3 H (14-18) Glucose 147 H (80-115) mg/dL Lactic Acid 2.5 H (0.4-2.0) mmol/L Calcium 7.2 L (8.5-10.1) mg/dL Magnesium 1.6 L (1.8-2.4) mg/dl Creatine Kinase (39-308) U/L Troponin I (0.00-0.056) ng/mL C-Reactive Protein 6.0 H* (<1.0) mg/dL 02/14/17 02/14/17 02/14/17 Range/Units 05:55 05:55 10:15 WBC (4.23-9.07) K/mm3 RBC (4.63-6.08) M/mm3 Hgb (13.7-17.5) gm/L Hct (40.1-51.0) % MCV (79.0-92.2) fl MCH (25.7-32.2) pg MCHC (32.2-35.5) g/dl RDW Std Deviation (35.1-43.9) fL Plt Count (163-337) K/mm3 MPV (9.4-12.3) fl Neut % (Auto) (34.0-67.9) % Lymph % (Auto) (21.8-53.1) % Ocean % (Auto) (5.3-12.2) % Eos % (Auto) (0.8-7.0) Baso % (Auto) (0.1-1.2) % Neut # (Auto) (1.78-5.38) K/mm3 Lymph # (Auto) (1.32-3.57) K/mm3 Ocean # (Auto) (0.30-0.82) K/mm3 Eos # (Auto) (0.04-0.54) K/mm3 Baso # (Auto) (0.01-0.08) K/mm3 Manual Slide Review Sodium (136-145) mEq/L Potassium (3.5-5.1) mEq/L Chloride (98-107) mEq/L Carbon Dioxide (21-32) mEq/L Anion Gap (5-15) BUN (7-18) mg/dL Creatinine (0.7-1.3) mg/dL Est Cr Clr Drug Dosing mL/min Estimated GFR (MDRD) (>60) mL/min BUN/Creatinine Ratio (14-18) Glucose (80-115) mg/dL Lactic Acid 1.5 (0.4-2.0) mmol/L Calcium (8.5-10.1) mg/dL Magnesium (1.8-2.4) mg/dl Creatine Kinase (39-308) U/L Troponin I 0.059 H* 0.102 H* (0.00-0.056) ng/mL C-Reactive Protein (<1.0) mg/dL 02/14/17 02/14/17 Range/Units 10:15 10:15 WBC (4.23-9.07) K/mm3 RBC (4.63-6.08) M/mm3 Hgb (13.7-17.5) gm/L Hct (40.1-51.0) % MCV (79.0-92.2) fl MCH (25.7-32.2) pg MCHC (32.2-35.5) g/dl RDW Std Deviation (35.1-43.9) fL Plt Count (163-337) K/mm3 MPV (9.4-12.3) fl Neut % (Auto) (34.0-67.9) % Lymph % (Auto) (21.8-53.1) % Ocean % (Auto) (5.3-12.2) % Eos % (Auto) (0.8-7.0) Baso % (Auto) (0.1-1.2) % Neut # (Auto) (1.78-5.38) K/mm3 Lymph # (Auto) (1.32-3.57) K/mm3 Ocean # (Auto) (0.30-0.82) K/mm3 Eos # (Auto) (0.04-0.54) K/mm3 Baso # (Auto) (0.01-0.08) K/mm3 Manual Slide Review Sodium (136-145) mEq/L Potassium (3.5-5.1) mEq/L Chloride (98-107) mEq/L Carbon Dioxide (21-32) mEq/L Anion Gap (5-15) BUN (7-18) mg/dL Creatinine (0.7-1.3) mg/dL Est Cr Clr Drug Dosing mL/min Estimated GFR (MDRD) (>60) mL/min BUN/Creatinine Ratio (14-18) Glucose (80-115) mg/dL Lactic Acid 2.4 H (0.4-2.0) mmol/L Calcium (8.5-10.1) mg/dL Magnesium (1.8-2.4) mg/dl Creatine Kinase 155 (39-308) U/L Troponin I (0.00-0.056) ng/mL C-Reactive Protein (<1.0) mg/dL Med Orders - Current: Current Medications Acetaminophen (Tylenol) 650 mg PO Q4H PRN PRN Reason: Pain (Mild 1-3)/fever Hydrocodone Bitart/Acetaminophen ([place] 325-5 Mg) 1 tab PO Q4H PRN PRN Reason: Pain (moderate 4-6) Famotidine (Pepcid) 20 mg PO BID [facility] Last Admin: 02/14/17 09:08 Dose: 20 mg Hydromorphone HCl (Dilaudid) 0.5 mg IVPUSH Q3H PRN PRN Reason: Severe pain (7-10) Last Admin: 02/13/17 16:23 Dose: 0.5 mg Sodium Chloride (Normal Saline) 1,000 mls @ 125 mls/hr IV ASDIRECTED [facility] Last Admin: 02/14/17 05:41 Dose: 125 mls/hr Piperacillin Sod/Tazobactam (Sod 4.5 gm/ Sodium Chloride) 100 mls @ 25 mls/hr IV Q8H [facility] Last Admin: 02/14/17 06:43 Dose: 25 mls/hr Vancomycin HCl 1 gm/Vancomycin HCl 250 mg/ Sodium Chloride 250 mls @ 166.667 mls/hr IV Q12H [facility] Last Admin: 02/14/17 10:19 Dose: 166.667 mls/hr Ketorolac Tromethamine (Toradol) 30 mg IV Q6H PRN PRN Reason: Pain (moderate 4-6) Last Admin: 02/13/17 17:58 Dose: 30 mg Ketorolac Tromethamine (Toradol) 15 mg IVPUSH Q6H [facility] Last Admin: 02/14/17 10:19 Dose: Not Given Lorazepam (Ativan) 1 mg PO Q4H PRN PRN Reason: anxiety/restlessness Miscellaneous Information (Remove Patch) 1 ea TRDERM DAILY [facility] Last Admin: 02/14/17 11:23 Dose: Not Given Nicotine (Habitrol) 21 mg TRDERM DAILY [facility] Last Admin: 02/14/17 10:19 Dose: Not Given Ondansetron HCl (Zofran Odt) 4 mg PO Q4H PRN PRN Reason: nausea, able to take PO Paroxetine HCl (Paxil) 20 mg PO DAILY [facility] Last Admin: 02/14/17 09:08 Dose: 20 mg Saccharomyces Boulardii (Florastor) 250 mg PO BID [facility] Last Admin: 02/14/17 09:09 Dose: 250 mg Senna/Docusate Sodium (Senna Plus) 1 tab PO BID PRN PRN Reason: Constipation Sodium Chloride (Saline Flush) 10 ml FLUSH ASDIRECTED PRN PRN Reason: Keep Vein Open Last Admin: 02/13/17 09:43 Dose: 10 ml Sodium Chloride (Saline Flush) 10 ml FLUSH ONETIME PRN PRN Reason: IV FLUSH Stop: 02/14/17 16:00 Last Admin: 02/14/17 09:50 Dose: 10 ml Temazepam (Restoril) 7.5 mg PO BEDTIME PRN PRN Reason: Sleep Vancomycin HCl (Pharmacy To Dose - Vancomycin) 1 dose .XX ASDIRECTED [facility] Discontinued Medications Fentanyl (Sublimaze) 100 mcg IVPUSH ONETIME ONE Stop: 02/13/17 10:56 Last Admin: 02/13/17 11:15 Dose: 100 mcg Hydromorphone HCl (Dilaudid) 1 mg IVPUSH ONETIME ONE Stop: 02/13/17 09:25 Last Admin: 02/13/17 09:40 Dose: 1 mg Ceftriaxone Sodium 2 gm/ (Sodium Chloride) 100 mls @ 200 mls/hr IV ONETIME ONE Stop: 02/13/17 09:53 Last Admin: 02/13/17 09:45 Dose: 200 mls/hr Sodium Chloride (Normal Saline) 500 mls @ 999 mls/hr IV ASDIRECTED [facility] Last Admin: 02/13/17 16:45 Dose: 999 mls/hr Sodium Chloride (Normal Saline) 1,000 mls @ 999 mls/hr IV ASDIRECTED [facility] Last Admin: 02/13/17 22:33 Dose: 999 mls/hr Piperacillin Sod/Tazobactam (Sod 4.5 gm/ Sodium Chloride) 100 mls @ 200 mls/hr IV ONETIME ONE Stop: 02/13/17 18:59 Last Admin: 02/13/17 18:53 Dose: Not Given Piperacillin Sod/Tazobactam (Sod 4.5 gm/ Sodium Chloride) 100 mls @ 200 mls/hr IV ONETIME ONE Stop: 02/13/17 18:59 Last Admin: 02/13/17 18:50 Dose: 200 mls/hr Vancomycin HCl 1 gm/Vancomycin HCl 250 mg/ Sodium Chloride 250 mls @ 250 mls/ hr IV Q12H [facility] Last Admin: 02/13/17 23:58 Dose: Not Given Vancomycin HCl 1 gm/Vancomycin HCl 250 mg/ Sodium Chloride 250 mls @ 250 mls/ hr IV Q12H [facility] Last Admin: 02/13/17 23:58 Dose: Not Given Vancomycin HCl 1 gm/Vancomycin HCl 250 mg/ Sodium Chloride 250 mls @ 250 mls/ hr IV Q12H [facility] Last Admin: 02/13/17 21:00 Dose: 250 mls/hr Sodium Chloride (Normal Saline) 1,000 mls @ 999 mls/hr IV ASDIRECTED [facility] Stop: 02/14/17 22:31 Last Admin: 02/13/17 23:40 Dose: 999 mls/hr Vancomycin HCl 1 gm/Vancomycin HCl 250 mg/ Sodium Chloride 500 mls @ 333.333 mls/hr IV Q12H [facility] Sodium Chloride (Normal Saline) 1,000 mls @ 999 mls/hr IV ASDIRECTED [facility] Magnesium Sulfate 2 gm/ Premix 50 mls @ 25 mls/hr IV ONETIME ONE Stop: 02/14/17 10:16 Last Admin: 02/14/17 11:48 Dose: 25 mls/hr Ibuprofen (Motrin) 600 mg PO Q6H PRN PRN Reason: Pain (moderate 4-6) Last Admin: 02/14/17 00:27 Dose: 600 mg Iopamidol (Isovue-300 (61%)) 100 ml IVPUSH ONETIME ONE Stop: 02/14/17 09:04 Last Admin: 02/14/17 09:49 Dose: 100 ml Ketorolac Tromethamine (Toradol) 30 mg IVPUSH ONETIME ONE Stop: 02/13/17 11:37 Last Admin: 02/13/17 11:42 Dose: 30 mg Ketorolac Tromethamine (Toradol) 30 mg IVPUSH Q6H [facility] Last Admin: 02/14/17 11:31 Dose: Not Given - Exam Quality Assessment: DVT Prophylaxis General: Alert, Oriented, Cooperative, No Acute Distress HEENT: Pupils Equal, Pupils Reactive, EOMI, Mucous Membr. Moist/[place] Neck: Supple, Trachea Midline, No JVD Lungs: Clear to Auscultation, Normal Respiratory Effort Cardiovascular: Regular Rate, Regular Rhythm GI/Abdominal Exam: Normal Bowel Sounds, Soft, Non-Tender, No Organomegaly, No Distention, No Abnormal Bruit, No Mass, Pelvis Stable (Male) Exam: Deferred Back Exam: Normal Inspection Extremities: No Pedal Edema, Normal Capillary Refill, Other (Right arm is erythemic and swollen. Pt. reports he feels like swelling has advanced further up arm. Edge of inflammation was marked and appears to be stable visually. ) Peripheral Pulses: 2+: Radial (L), Radial (R), Posterior Tibial (L), Posterior Tibial (R), Dorsalis Pedis (L), Dorsalis Pedis (R) Skin: Warm, Dry, Intact Neurological: No New Focal Deficit Psy/Mental Status: Alert, Normal Affect, Normal Mood - Problem List & Annotations (1) Cellulitis of right hand SNOMED Code(s): 02558229 Code(s): L03.113 - CELLULITIS OF RIGHT UPPER LIMB Status: Acute Priority : High Current Visit: Yes (2) Hypotension SNOMED Code(s): 95514670 Code(s): I95.9 - HYPOTENSION, UNSPECIFIED Status: Acute Priority: High Current Visit: Yes QualifierTitle: Hypotension type: unspecified hypotension type Qualified Code(s): I95.9 - Hypotension, unspecified (3) Elevated troponin SNOMED Code(s): 450199704 Code(s): R74.8 - ABNORMAL LEVELS OF OTHER SERUM ENZYMES Status: Acute Priority: High Current Visit: Yes (4) Hypomagnesemia SNOMED Code(s): 358032088 Code(s): E83.42 - HYPOMAGNESEMIA Status: Acute Priority: Medium Current Visit: Yes - Problem List Review Problem List Initiated/Reviewed/Updated: Yes - My Orders Last 24 Hours: My Active Orders 02/13/17 16:12 HYDROmorphone [Dilaudid] 0.5 mg IVPUSH Q3H PRN 02/13/17 18:18 Consult to Physician [CONS] Routine 02/13/17 18:19 Notify Provider Consults [RC] ASDIRECTED 02/13/17 18:30 Vancomycin Pharmacy to Dose [Pharmacy to Dose - Vancomycin] 1 dose .XX ASDIRECTED 02/14/17 06:00 Piperacillin/Tazobactam [Zosyn] 4.5 gm Sodium Chloride 0.9% [Normal Saline] 100 ml IV Q8H 02/14/17 07:00 Ketorolac [Toradol] 15 mg IVPUSH Q6H 02/14/17 10:10 CULTURE BLOOD [BC] Stat 02/14/17 10:15 CULTURE BLOOD [BC] Routine 02/14/17 11:11 EKG 12 Lead [EKG Documentation Completion] [RC] STAT 02/14/17 17:30 LIPID PANEL [CHEM] Routine TROPONIN I [CHEM] Routine - Plan Plan:: I/P: Cellulitis of Rt hand -IV Rocephin rec'd in ED, switched to vanco and zosyn. -Florastor -Xray of wrist obtained with degenerative changes noted and diffuse soft tissue swelling posteriorly -CT of arm obtained today -Diffuse subcutaneous soft tissue edema with skin thickening. Findings felt compatible with rather prominent cellulitis. -Venous doppler of Rt UE in ED and was negative for blood clot/DVT -Dr. Bailey, Orthopedics was consulted in ED and did not feel there was tendon involvement. Formal consult added today -Elevate -Pain medications and NSAIDS PRN - Toradol scheduled -Lactic acid 2.5 -->2.4 -CRP 6.0 -Reports he feels like infection is spreading. Edge of inflammation was marked and appears to be stable visually -Has hx/o right shoulder arthroplasty. -CK 155 -Telemetry ordered Elevated troponin -Ordered troponin due to persistent hypotension and episode of SOB overnight which resolved quickly -0.059-->0.102 -Repeat ordered this evening -12-lead EKG obtained and shows NSR at 83 BPM with Q waves in V1 and V2. -Case management attempting to locate prior EKG for comparison -Denies CP, palpitations, or SOB -Continue to monitor Hypomagnesemia -Mg 1.6 today -Supplemented this AM -Continue to monitor Chronic conditions: IBS by hx Other: GI prophylax with pepcid DVT prohylax with Teds/ambulation CM/SW for assist with dc planning Patient is full code status. <Nancy Martin M - Last Filed: 02/14/17 19:07> - Patient Data Vitals - Most Recent: Last Vital Signs Temp 36.4 C 02/14/17 15:51 Pulse 81 02/14/17 15:51 Resp 18 02/14/17 15:51 BP 108/61 02/14/17 15:51 Pulse Ox 93 L 02/14/17 15:51 I&O - Last 24 Hours: Intake & Output 02/14/17 02/14/17 02/14/17 06:59 14:59 22:59 Intake Total 064 790 0916 Output Total 300 1850 Balance 150 600 530 Lab Results Last 24 Hours: Laboratory Results - last 24 hr 02/13/17 02/14/17 02/14/17 Range/Units 18:28 05:55 05:55 WBC 11.96 H (4.23-9.07) K/mm3 RBC 3.99 L (4.63-6.08) M/mm3 Hgb 12.3 L (13.7-17.5) gm/L Hct 36.5 L (40.1-51.0) % MCV 91.5 (79.0-92.2) fl MCH 30.8 (25.7-32.2) pg MCHC 33.7 (32.2-35.5) g/dl RDW Std Deviation 44.8 H (35.1-43.9) fL Plt Count 136 L (163-337) K/mm3 MPV 9.6 (9.4-12.3) fl Neut % (Auto) 86.7 H (34.0-67.9) % Lymph % (Auto) 4.0 L (21.8-53.1) % Ocean % (Auto) 6.3 (5.3-12.2) % Eos % (Auto) 0.3 L (0.8-7.0) Baso % (Auto) 0.1 (0.1-1.2) % Neut # (Auto) 10.38 H (1.78-5.38) K/mm3 Lymph # (Auto) 0.48 L (1.32-3.57) K/mm3 Ocean # (Auto) 0.75 (0.30-0.82) K/mm3 Eos # (Auto) 0.03 L (0.04-0.54) K/mm3 Baso # (Auto) 0.01 (0.01-0.08) K/mm3 Manual Slide Review Abnormal smear Sodium 140 (136-145) mEq/L Potassium 4.2 (3.5-5.1) mEq/L Chloride 111 H (98-107) mEq/L Carbon Dioxide 18 L (21-32) mEq/L Anion Gap 15.2 H (5-15) BUN 28 H (7-18) mg/dL Creatinine 1.2 (0.7-1.3) mg/dL Est Cr Clr Drug Dosing 63.62 mL/min Estimated GFR (MDRD) > 60 (>60) mL/min BUN/Creatinine Ratio 23.3 H (14-18) Glucose 147 H (80-115) mg/dL Lactic Acid 2.5 H (0.4-2.0) mmol/L Calcium 7.2 L (8.5-10.1) mg/dL Magnesium 1.6 L (1.8-2.4) mg/dl Creatine Kinase (39-308) U/L CK-MB (CK-2) (0-3.6) ng/ml Troponin I (0.00-0.056) ng/mL C-Reactive Protein 6.0 H* (<1.0) mg/dL Triglycerides (<150) mg/dL Cholesterol (<200) mg/dL LDL Cholesterol Direct (<100) mg/dL HDL Cholesterol (40-59) mg/dL 02/14/17 02/14/17 02/14/17 Range/Units 05:55 05:55 10:15 WBC (4.23-9.07) K/mm3 RBC (4.63-6.08) M/mm3 Hgb (13.7-17.5) gm/L Hct (40.1-51.0) % MCV (79.0-92.2) fl MCH (25.7-32.2) pg MCHC (32.2-35.5) g/dl RDW Std Deviation (35.1-43.9) fL Plt Count (163-337) K/mm3 MPV (9.4-12.3) fl Neut % (Auto) (34.0-67.9) % Lymph % (Auto) (21.8-53.1) % Ocean % (Auto) (5.3-12.2) % Eos % (Auto) (0.8-7.0) Baso % (Auto) (0.1-1.2) % Neut # (Auto) (1.78-5.38) K/mm3 Lymph # (Auto) (1.32-3.57) K/mm3 Ocean # (Auto) (0.30-0.82) K/mm3 Eos # (Auto) (0.04-0.54) K/mm3 Baso # (Auto) (0.01-0.08) K/mm3 Manual Slide Review Sodium (136-145) mEq/L Potassium (3.5-5.1) mEq/L Chloride (98-107) mEq/L Carbon Dioxide (21-32) mEq/L Anion Gap (5-15) BUN (7-18) mg/dL Creatinine (0.7-1.3) mg/dL Est Cr Clr Drug Dosing mL/min Estimated GFR (MDRD) (>60) mL/min BUN/Creatinine Ratio (14-18) Glucose (80-115) mg/dL Lactic Acid 1.5 (0.4-2.0) mmol/L Calcium (8.5-10.1) mg/dL Magnesium (1.8-2.4) mg/dl Creatine Kinase (39-308) U/L CK-MB (CK-2) (0-3.6) ng/ml Troponin I 0.059 H* 0.102 H* (0.00-0.056) ng/mL C-Reactive Protein (<1.0) mg/dL Triglycerides (<150) mg/dL Cholesterol (<200) mg/dL LDL Cholesterol Direct (<100) mg/dL HDL Cholesterol (40-59) mg/dL 02/14/17 02/14/17 02/14/17 Range/Units 10:15 10:15 17:10 WBC (4.23-9.07) K/mm3 RBC (4.63-6.08) M/mm3 Hgb (13.7-17.5) gm/L Hct (40.1-51.0) % MCV (79.0-92.2) fl MCH (25.7-32.2) pg MCHC (32.2-35.5) g/dl RDW Std Deviation (35.1-43.9) fL Plt Count (163-337) K/mm3 MPV (9.4-12.3) fl Neut % (Auto) (34.0-67.9) % Lymph % (Auto) (21.8-53.1) % Ocean % (Auto) (5.3-12.2) % Eos % (Auto) (0.8-7.0) Baso % (Auto) (0.1-1.2) % Neut # (Auto) (1.78-5.38) K/mm3 Lymph # (Auto) (1.32-3.57) K/mm3 Ocean # (Auto) (0.30-0.82) K/mm3 Eos # (Auto) (0.04-0.54) K/mm3 Baso # (Auto) (0.01-0.08) K/mm3 Manual Slide Review Sodium (136-145) mEq/L Potassium (3.5-5.1) mEq/L Chloride (98-107) mEq/L Carbon Dioxide (21-32) mEq/L Anion Gap (5-15) BUN (7-18) mg/dL Creatinine (0.7-1.3) mg/dL Est Cr Clr Drug Dosing mL/min Estimated GFR (MDRD) (>60) mL/min BUN/Creatinine Ratio (14-18) Glucose (80-115) mg/dL Lactic Acid 2.4 H (0.4-2.0) mmol/L Calcium (8.5-10.1) mg/dL Magnesium (1.8-2.4) mg/dl Creatine Kinase 155 (39-308) U/L CK-MB (CK-2) (0-3.6) ng/ml Troponin I 0.173 H* (0.00-0.056) ng/mL C-Reactive Protein (<1.0) mg/dL Triglycerides 124 (<150) mg/dL Cholesterol 150 (<200) mg/dL LDL Cholesterol Direct 78 (<100) mg/dL HDL Cholesterol 43.0 (40-59) mg/dL 02/14/ Range/Units 17:10 WBC (4.23-9.07) K/mm3 RBC (4.63-6.08) M/mm3 Hgb (13.7-17.5) gm/L Hct (40.1-51.0) % MCV (79.0-92.2) fl MCH (25.7-32.2) pg MCHC (32.2-35.5) g/dl RDW Std Deviation (35.1-43.9) fL Plt Count (163-337) K/mm3 MPV (9.4-12.3) fl Neut % (Auto) (34.0-67.9) % Lymph % (Auto) (21.8-53.1) % Ocean % (Auto) (5.3-12.2) % Eos % (Auto) (0.8-7.0) Baso % (Auto) (0.1-1.2) % Neut # (Auto) (1.78-5.38) K/mm3 Lymph # (Auto) (1.32-3.57) K/mm3 Ocean # (Auto) (0.30-0.82) K/mm3 Eos # (Auto) (0.04-0.54) K/mm3 Baso # (Auto) (0.01-0.08) K/mm3 Manual Slide Review Sodium (136-145) mEq/L Potassium (3.5-5.1) mEq/L Chloride (98-107) mEq/L Carbon Dioxide (21-32) mEq/L Anion Gap (5-15) BUN (7-18) mg/dL Creatinine (0.7-1.3) mg/dL Est Cr Clr Drug Dosing mL/min Estimated GFR (MDRD) (>60) mL/min BUN/Creatinine Ratio (14-18) Glucose (80-115) mg/dL Lactic Acid (0.4-2.0) mmol/L Calcium (8.5-10.1) mg/dL Magnesium (1.8-2.4) mg/dl Creatine Kinase (39-308) U/L CK-MB (CK-2) 2.0 (0-3.6) ng/ml Troponin I (0.00-0.056) ng/mL C-Reactive Protein (<1.0) mg/dL Triglycerides (<150) mg/dL Cholesterol (<200) mg/dL LDL Cholesterol Direct (<100) mg/dL HDL Cholesterol (40-59) mg/dL Med Orders - Current: Current Medications Acetaminophen (Tylenol) 650 mg PO Q4H PRN PRN Reason: Pain (Mild 1-3)/fever Hydrocodone Bitart/Acetaminophen ([place] 325-5 Mg) 1 tab PO Q4H PRN PRN Reason: Pain (moderate 4-6) Famotidine (Pepcid) 20 mg PO BID [facility] Last Admin: 02/14/17 09:08 Dose: 20 mg Hydromorphone HCl (Dilaudid) 0.5 mg IVPUSH Q3H PRN PRN Reason: Severe pain (7-10) Last Admin: 02/13/17 16:23 Dose: 0.5 mg Sodium Chloride (Normal Saline) 1,000 mls @ 125 mls/hr IV ASDIRECTED [facility] Last Admin: 02/14/17 13:21 Dose: 125 mls/hr Piperacillin Sod/Tazobactam (Sod 4.5 gm/ Sodium Chloride) 100 mls @ 25 mls/hr IV Q8H [facility] Last Admin: 02/14/17 16:08 Dose: 25 mls/hr Vancomycin HCl 1 gm/Vancomycin HCl 250 mg/ Sodium Chloride 250 mls @ 166.667 mls/hr IV Q12H [facility] Last Admin: 02/14/17 10:19 Dose: 166.667 mls/hr Ketorolac Tromethamine (Toradol) 15 mg IVPUSH Q6H PRN PRN Reason: Pain Lorazepam (Ativan) 1 mg PO Q4H PRN PRN Reason: anxiety/restlessness Miscellaneous Information (Remove Patch) 1 ea TRDERM DAILY [facility] Last Admin: 02/14/17 11:23 Dose: Not Given Nicotine (Habitrol) 21 mg TRDERM DAILY [facility] Last Admin: 02/14/17 10:19 Dose: Not Given Ondansetron HCl (Zofran Odt) 4 mg PO Q4H PRN PRN Reason: nausea, able to take PO Paroxetine HCl (Paxil) 20 mg PO DAILY [facility] Last Admin: 02/14/17 09:08 Dose: 20 mg Saccharomyces Boulardii (Florastor) 250 mg PO BID [facility] Last Admin: 02/14/17 09:09 Dose: 250 mg Senna/Docusate Sodium (Senna Plus) 1 tab PO BID PRN PRN Reason: Constipation Sodium Chloride (Saline Flush) 10 ml FLUSH ASDIRECTED PRN PRN Reason: Keep Vein Open Last Admin: 02/13/17 09:43 Dose: 10 ml Temazepam (Restoril) 7.5 mg PO BEDTIME PRN PRN Reason: Sleep Vancomycin HCl (Pharmacy To Dose - Vancomycin) 1 dose .XX ASDIRECTED [facility] Discontinued Medications Fentanyl (Sublimaze) 100 mcg IVPUSH ONETIME ONE Stop: 02/13/17 10:56 Last Admin: 02/13/17 11:15 Dose: 100 mcg Hydromorphone HCl (Dilaudid) 1 mg IVPUSH ONETIME ONE Stop: 02/13/17 09:25 Last Admin: 02/13/17 09:40 Dose: 1 mg Ceftriaxone Sodium 2 gm/ (Sodium Chloride) 100 mls @ 200 mls/hr IV ONETIME ONE Stop: 02/13/17 09:53 Last Admin: 02/13/17 09:45 Dose: 200 mls/hr Sodium Chloride (Normal Saline) 500 mls @ 999 mls/hr IV ASDIRECTED [facility] Last Admin: 02/13/17 16:45 Dose: 999 mls/hr Sodium Chloride (Normal Saline) 1,000 mls @ 999 mls/hr IV ASDIRECTED [facility] Last Admin: 02/13/17 22:33 Dose: 999 mls/hr Piperacillin Sod/Tazobactam (Sod 4.5 gm/ Sodium Chloride) 100 mls @ 200 mls/hr IV ONETIME ONE Stop: 02/13/17 18:59 Last Admin: 02/13/17 18:53 Dose: Not Given Piperacillin Sod/Tazobactam (Sod 4.5 gm/ Sodium Chloride) 100 mls @ 200 mls/hr IV ONETIME ONE Stop: 02/13/17 18:59 Last Admin: 02/13/17 18:50 Dose: 200 mls/hr Vancomycin HCl 1 gm/Vancomycin HCl 250 mg/ Sodium Chloride 250 mls @ 250 mls/ hr IV Q12H [facility] Last Admin: 02/13/17 23:58 Dose: Not Given Vancomycin HCl 1 gm/Vancomycin HCl 250 mg/ Sodium Chloride 250 mls @ 250 mls/ hr IV Q12H [facility] Last Admin: 02/13/17 23:58 Dose: Not Given Vancomycin HCl 1 gm/Vancomycin HCl 250 mg/ Sodium Chloride 250 mls @ 250 mls/ hr IV Q12H [facility] Last Admin: 02/13/17 21:00 Dose: 250 mls/hr Sodium Chloride (Normal Saline) 1,000 mls @ 999 mls/hr IV ASDIRECTED [facility] Stop: 02/14/17 22:31 Last Admin: 02/13/17 23:40 Dose: 999 mls/hr Vancomycin HCl 1 gm/Vancomycin HCl 250 mg/ Sodium Chloride 500 mls @ 333.333 mls/hr IV Q12H [facility] Sodium Chloride (Normal Saline) 1,000 mls @ 999 mls/hr IV ASDIRECTED [facility] Magnesium Sulfate 2 gm/ Premix 50 mls @ 25 mls/hr IV ONETIME ONE Stop: 02/14/17 10:16 Last Admin: 02/14/17 11:48 Dose: 25 mls/hr Ibuprofen (Motrin) 600 mg PO Q6H PRN PRN Reason: Pain (moderate 4-6) Last Admin: 02/14/17 00:27 Dose: 600 mg Iopamidol (Isovue-300 (61%)) 100 ml IVPUSH ONETIME ONE Stop: 02/14/17 09:04 Last Admin: 02/14/17 09:49 Dose: 100 ml Ketorolac Tromethamine (Toradol) 30 mg IVPUSH ONETIME ONE Stop: 02/13/17 11:37 Last Admin: 02/13/17 11:42 Dose: 30 mg Ketorolac Tromethamine (Toradol) 30 mg IV Q6H PRN PRN Reason: Pain (moderate 4-6) Last Admin: 02/13/17 17:58 Dose: 30 mg Ketorolac Tromethamine (Toradol) 30 mg IVPUSH Q6H [facility] Last Admin: 02/14/17 11:31 Dose: Not Given Ketorolac Tromethamine (Toradol) 15 mg IVPUSH Q6H [facility] Last Admin: 02/14/17 13:22 Dose: 15 mg Sodium Chloride (Saline Flush) 10 ml FLUSH ONETIME PRN PRN Reason: IV FLUSH Stop: 02/14/17 16:00 Last Admin: 02/14/17 09:50 Dose: 10 ml - My Orders Last 24 Hours: My Active Orders 02/14/17 18:20 Ketorolac [Toradol] 15 mg IVPUSH Q6H PRN - Plan Plan:: Continue current plan, ortho will follow.
--- NOTE | 2017-02-14 19:29 | PCM.SN ---
- Free Text/Narrative Note: Patient seen this evening. Pain is improved, swelling to forearm has improved but to dorsum of hand is still swollen, erythematous and taut. Moves fingers without increased pain. Denies f/c/s this morning or afternoon. He is eating, voiding. No nausea or diarrhea. Repeat troponin at 1730 is 0.173, CKMB is ordered and is normal at 2.0. Repeat EKG also done at 1824- shows sinus rhythm rate of 83bpm, one PVC noted-- essentially unchanged from prior EKG obtained this morning. Telemetry is unchanged and without concerning findings. Patient denies chest pain, palpitations or other anginal equivalents. Reviewed with Dr. Martin, I do not feel this is cardiac in nature, she concurs at this time. Will recheck troponin in am. Continue with POC as outlined in prior note from this morning per Daniel Taylor.
[2017-02-14] MEDS: Ketorolac 15 MG/ML SDV IVPUSH PRN (20:54)
[2017-02-15] MEDS: Ketorolac 15 MG/ML SDV IVPUSH PRN ×3 (02:40→21:21)
[2017-02-15] MEDS: Piperacillin/Tazobactam 4.5 GM in Sodium Chloride 0.9% 100 ML IV SCH ×3 (06:14→22:35)
[2017-02-15] MEDS ORDERED: Furosemide 40 MG/4 ML VIAL IVPUSH ONE (07:47)
[2017-02-15] MEDS: Saccharomyces Boulardii (Probiotic) 250 MG Cap PO SCH ×2 (08:29→20:14)
[2017-02-15] MEDS: PARoxetine 20 MG Tab PO SCH (08:29)
[2017-02-15] MEDS: Famotidine 20 MG Tab PO SCH ×2 (08:30→20:13)
[2017-02-15] MEDS: Nicotine 21 MG/24 Hr Patch TRDERM SCH (09:43)
--- NOTE | 2017-02-15 10:23 | PCM.PN ---
- General Info Date of Service: 02/15/17 Admission Dx/Problem (Free Text): Admission Diagnosis/Problem Admission Diagnosis/Problem Cellulitis and abscess of hand Functional Status: Reports: Pain Controlled, Tolerating Diet, Ambulating, Urinating - Review of Systems General: Denies: Fever (afebrile overnight) HEENT: Reports: No Symptoms Pulmonary: Denies: Shortness of Breath, Cough Cardiovascular: Denies: Chest Pain, Palpitations, Orthopnea, Edema, Lightheadedness Gastrointestinal: Reports: No Symptoms. Denies: Diarrhea, Nausea Genitourinary: Reports: No Symptoms Musculoskeletal: Reports: Arm Pain, Hand Pain Neurological: Reports: No Symptoms - Patient Data Vitals - Most Recent: Last Vital Signs Temp 98.2 F 02/15/17 08:36 Pulse 67 02/15/17 08:32 Resp 14 02/15/17 08:31 BP 113/67 02/15/17 08:32 Pulse Ox 94 L 02/15/17 08:32 Weight - Most Recent: 204 lb 9.6 oz I&O - Last 24 Hours: Intake & Output 02/14/17 02/15/17 02/15/17 22:59 06:59 14:59 Intake Total 2380 2433 Output Total 1850 950 Balance 530 1483 Lab Results Last 24 Hours: Laboratory Results - last 24 hr 02/14/17 02/14/17 02/14/17 Range/Units 10:15 10:15 10:15 WBC (4.23-9.07) K/mm3 RBC (4.63-6.08) M/mm3 Hgb (13.7-17.5) gm/L Hct (40.1-51.0) % MCV (79.0-92.2) fl MCH (25.7-32.2) pg MCHC (32.2-35.5) g/dl RDW Std Deviation (35.1-43.9) fL Plt Count (163-337) K/mm3 MPV (9.4-12.3) fl Neut % (Auto) (34.0-67.9) % Lymph % (Auto) (21.8-53.1) % Archer % (Auto) (5.3-12.2) % Eos % (Auto) (0.8-7.0) Baso % (Auto) (0.1-1.2) % Neut # (Auto) (1.78-5.38) K/mm3 Lymph # (Auto) (1.32-3.57) K/mm3 Archer # (Auto) (0.30-0.82) K/mm3 Eos # (Auto) (0.04-0.54) K/mm3 Baso # (Auto) (0.01-0.08) K/mm3 Manual Slide Review Sodium (136-145) mEq/L Potassium (3.5-5.1) mEq/L Chloride (98-107) mEq/L Carbon Dioxide (21-32) mEq/L Anion Gap (5-15) BUN (7-18) mg/dL Creatinine (0.7-1.3) mg/dL Est Cr Clr Drug Dosing mL/min Estimated GFR (MDRD) (>60) mL/min BUN/Creatinine Ratio (14-18) Glucose (80-115) mg/dL Lactic Acid 2.4 H (0.4-2.0) mmol/L Calcium (8.5-10.1) mg/dL Magnesium (1.8-2.4) mg/dl Creatine Kinase 155 (39-308) U/L CK-MB (CK-2) (0-3.6) ng/ml Troponin I 0.102 H* (0.00-0.056) ng/mL C-Reactive Protein (<1.0) mg/dL Triglycerides (<150) mg/dL Cholesterol (<200) mg/dL LDL Cholesterol Direct (<100) mg/dL HDL Cholesterol (40-59) mg/dL Vancomycin Trough (10.0-20.0) 02/14/17 02/14/17 02/15/17 Range/Units 17:10 17:10 06:45 WBC 12.70 H (4.23-9.07) K/mm3 RBC 3.94 L (4.63-6.08) M/mm3 Hgb 11.9 L (13.7-17.5) gm/L Hct 36.0 L (40.1-51.0) % MCV 91.4 (79.0-92.2) fl MCH 30.2 (25.7-32.2) pg MCHC 33.1 (32.2-35.5) g/dl RDW Std Deviation 45.2 H (35.1-43.9) fL Plt Count 131 L (163-337) K/mm3 MPV 9.6 (9.4-12.3) fl Neut % (Auto) 86.4 H (34.0-67.9) % Lymph % (Auto) 5.4 L (21.8-53.1) % Archer % (Auto) 4.8 L (5.3-12.2) % Eos % (Auto) 2.0 (0.8-7.0) Baso % (Auto) 0.1 (0.1-1.2) % Neut # (Auto) 10.97 H (1.78-5.38) K/mm3 Lymph # (Auto) 0.69 L (1.32-3.57) K/mm3 Archer # (Auto) 0.61 (0.30-0.82) K/mm3 Eos # (Auto) 0.26 (0.04-0.54) K/mm3 Baso # (Auto) 0.01 (0.01-0.08) K/mm3 Manual Slide Review Abnormal smear Sodium (136-145) mEq/L Potassium (3.5-5.1) mEq/L Chloride (98-107) mEq/L Carbon Dioxide (21-32) mEq/L Anion Gap (5-15) BUN (7-18) mg/dL Creatinine (0.7-1.3) mg/dL Est Cr Clr Drug Dosing mL/min Estimated GFR (MDRD) (>60) mL/min BUN/Creatinine Ratio (14-18) Glucose (80-115) mg/dL Lactic Acid (0.4-2.0) mmol/L Calcium (8.5-10.1) mg/dL Magnesium (1.8-2.4) mg/dl Creatine Kinase (39-308) U/L CK-MB (CK-2) 2.0 (0-3.6) ng/ml Troponin I 0.173 H* (0.00-0.056) ng/mL C-Reactive Protein (<1.0) mg/dL Triglycerides 124 (<150) mg/dL Cholesterol 150 (<200) mg/dL LDL Cholesterol Direct 78 (<100) mg/dL HDL Cholesterol 43.0 (40-59) mg/dL Vancomycin Trough (10.0-20.0) 02/15/17 02/15/17 02/15/17 Range/Units 06:45 06:45 06:45 WBC (4.23-9.07) K/mm3 RBC (4.63-6.08) M/mm3 Hgb (13.7-17.5) gm/L Hct (40.1-51.0) % MCV (79.0-92.2) fl MCH (25.7-32.2) pg MCHC (32.2-35.5) g/dl RDW Std Deviation (35.1-43.9) fL Plt Count (163-337) K/mm3 MPV (9.4-12.3) fl Neut % (Auto) (34.0-67.9) % Lymph % (Auto) (21.8-53.1) % Archer % (Auto) (5.3-12.2) % Eos % (Auto) (0.8-7.0) Baso % (Auto) (0.1-1.2) % Neut # (Auto) (1.78-5.38) K/mm3 Lymph # (Auto) (1.32-3.57) K/mm3 Archer # (Auto) (0.30-0.82) K/mm3 Eos # (Auto) (0.04-0.54) K/mm3 Baso # (Auto) (0.01-0.08) K/mm3 Manual Slide Review Sodium 143 (136-145) mEq/L Potassium 3.7 (3.5-5.1) mEq/L Chloride 114 H (98-107) mEq/L Carbon Dioxide 20 L (21-32) mEq/L Anion Gap 12.7 (5-15) BUN 15 (7-18) mg/dL Creatinine 1.0 (0.7-1.3) mg/dL Est Cr Clr Drug Dosing 76.35 mL/min Estimated GFR (MDRD) > 60 (>60) mL/min BUN/Creatinine Ratio 15.0 (14-18) Glucose 99 (80-115) mg/dL Lactic Acid (0.4-2.0) mmol/L Calcium 7.8 L (8.5-10.1) mg/dL Magnesium 1.9 (1.8-2.4) mg/dl Creatine Kinase (39-308) U/L CK-MB (CK-2) 2.2 (0-3.6) ng/ml Troponin I 0.203 H* (0.00-0.056) ng/mL C-Reactive Protein 7.0 H* (<1.0) mg/dL Triglycerides (<150) mg/dL Cholesterol (<200) mg/dL LDL Cholesterol Direct (<100) mg/dL HDL Cholesterol (40-59) mg/dL Vancomycin Trough (10.0-20.0) 02/15/17 Range/Units 08:35 WBC (4.23-9.07) K/mm3 RBC (4.63-6.08) M/mm3 Hgb (13.7-17.5) gm/L Hct (40.1-51.0) % MCV (79.0-92.2) fl MCH (25.7-32.2) pg MCHC (32.2-35.5) g/dl RDW Std Deviation (35.1-43.9) fL Plt Count (163-337) K/mm3 MPV (9.4-12.3) fl Neut % (Auto) (34.0-67.9) % Lymph % (Auto) (21.8-53.1) % Archer % (Auto) (5.3-12.2) % Eos % (Auto) (0.8-7.0) Baso % (Auto) (0.1-1.2) % Neut # (Auto) (1.78-5.38) K/mm3 Lymph # (Auto) (1.32-3.57) K/mm3 Archer # (Auto) (0.30-0.82) K/mm3 Eos # (Auto) (0.04-0.54) K/mm3 Baso # (Auto) (0.01-0.08) K/mm3 Manual Slide Review Sodium (136-145) mEq/L Potassium (3.5-5.1) mEq/L Chloride (98-107) mEq/L Carbon Dioxide (21-32) mEq/L Anion Gap (5-15) BUN (7-18) mg/dL Creatinine (0.7-1.3) mg/dL Est Cr Clr Drug Dosing mL/min Estimated GFR (MDRD) (>60) mL/min BUN/Creatinine Ratio (14-18) Glucose (80-115) mg/dL Lactic Acid (0.4-2.0) mmol/L Calcium (8.5-10.1) mg/dL Magnesium (1.8-2.4) mg/dl Creatine Kinase (39-308) U/L CK-MB (CK-2) (0-3.6) ng/ml Troponin I (0.00-0.056) ng/mL C-Reactive Protein (<1.0) mg/dL Triglycerides (<150) mg/dL Cholesterol (<200) mg/dL LDL Cholesterol Direct (<100) mg/dL HDL Cholesterol (40-59) mg/dL Vancomycin Trough 7.1 L (10.0-20.0) Med Orders - Current: Current Medications Acetaminophen (Tylenol) 650 mg PO Q4H PRN PRN Reason: Pain (Mild 1-3)/fever Hydrocodone Bitart/Acetaminophen ([place] 325-5 Mg) 1 tab PO Q4H PRN PRN Reason: Pain (moderate 4-6) Famotidine (Pepcid) 20 mg PO BID [facility] Last Admin: 02/15/17 08:30 Dose: 20 mg Hydromorphone HCl (Dilaudid) 0.5 mg IVPUSH Q3H PRN PRN Reason: Severe pain (7-10) Last Admin: 02/13/17 16:23 Dose: 0.5 mg Piperacillin Sod/Tazobactam (Sod 4.5 gm/ Sodium Chloride) 100 mls @ 25 mls/hr IV Q8H [facility] Last Admin: 02/15/17 06:14 Dose: 25 mls/hr Vancomycin HCl 1 gm/Vancomycin HCl 250 mg/ Sodium Chloride 250 mls @ 166.667 mls/hr IV Q12H [facility] Last Admin: 02/14/17 20:55 Dose: 166.667 mls/hr Ketorolac Tromethamine (Toradol) 15 mg IVPUSH Q6H PRN PRN Reason: Pain Last Admin: 02/15/17 02:40 Dose: 15 mg Lorazepam (Ativan) 1 mg PO Q4H PRN PRN Reason: anxiety/restlessness Miscellaneous Information (Remove Patch) 1 ea TRDERM DAILY [facility] Last Admin: 02/15/17 09:43 Dose: Not Given Nicotine (Habitrol) 21 mg TRDERM DAILY [facility] Last Admin: 02/15/17 09:43 Dose: Not Given Ondansetron HCl (Zofran Odt) 4 mg PO Q4H PRN PRN Reason: nausea, able to take PO Paroxetine HCl (Paxil) 20 mg PO DAILY [facility] Last Admin: 02/15/17 08:29 Dose: 20 mg Saccharomyces Boulardii (Florastor) 250 mg PO BID [facility] Last Admin: 02/15/17 08:29 Dose: 250 mg Senna/Docusate Sodium (Senna Plus) 1 tab PO BID PRN PRN Reason: Constipation Sodium Chloride (Saline Flush) 10 ml FLUSH ASDIRECTED PRN PRN Reason: Keep Vein Open Last Admin: 02/13/17 09:43 Dose: 10 ml Temazepam (Restoril) 7.5 mg PO BEDTIME PRN PRN Reason: Sleep Last Admin: 02/14/17 20:52 Dose: 7.5 mg Vancomycin HCl (Pharmacy To Dose - Vancomycin) 1 dose .XX ASDIRECTED [facility] Discontinued Medications Fentanyl (Sublimaze) 100 mcg IVPUSH ONETIME ONE Stop: 02/13/17 10:56 Last Admin: 02/13/17 11:15 Dose: 100 mcg Furosemide (Lasix) 10 mg IVPUSH NOW ONE Stop: 02/15/17 07:48 Last Admin: 02/15/17 08:28 Dose: 10 mg Hydromorphone HCl (Dilaudid) 1 mg IVPUSH ONETIME ONE Stop: 02/13/17 09:25 Last Admin: 02/13/17 09:40 Dose: 1 mg Ceftriaxone Sodium 2 gm/ (Sodium Chloride) 100 mls @ 200 mls/hr IV ONETIME ONE Stop: 02/13/17 09:53 Last Admin: 02/13/17 09:45 Dose: 200 mls/hr Sodium Chloride (Normal Saline) 1,000 mls @ 125 mls/hr IV ASDIRECTED [facility] Last Admin: 02/14/17 21:53 Dose: 125 mls/hr Sodium Chloride (Normal Saline) 500 mls @ 999 mls/hr IV ASDIRECTED [facility] Last Admin: 02/13/17 16:45 Dose: 999 mls/hr Sodium Chloride (Normal Saline) 1,000 mls @ 999 mls/hr IV ASDIRECTED [facility] Last Admin: 02/13/17 22:33 Dose: 999 mls/hr Piperacillin Sod/Tazobactam (Sod 4.5 gm/ Sodium Chloride) 100 mls @ 200 mls/hr IV ONETIME ONE Stop: 02/13/17 18:59 Last Admin: 02/13/17 18:53 Dose: Not Given Piperacillin Sod/Tazobactam (Sod 4.5 gm/ Sodium Chloride) 100 mls @ 200 mls/hr IV ONETIME ONE Stop: 02/13/17 18:59 Last Admin: 02/13/17 18:50 Dose: 200 mls/hr Vancomycin HCl 1 gm/Vancomycin HCl 250 mg/ Sodium Chloride 250 mls @ 250 mls/ hr IV Q12H [facility] Last Admin: 02/13/17 23:58 Dose: Not Given Vancomycin HCl 1 gm/Vancomycin HCl 250 mg/ Sodium Chloride 250 mls @ 250 mls/ hr IV Q12H [facility] Last Admin: 02/13/17 23:58 Dose: Not Given Vancomycin HCl 1 gm/Vancomycin HCl 250 mg/ Sodium Chloride 250 mls @ 250 mls/ hr IV Q12H [facility] Last Admin: 02/13/17 21:00 Dose: 250 mls/hr Sodium Chloride (Normal Saline) 1,000 mls @ 999 mls/hr IV ASDIRECTED [facility] Stop: 02/14/17 22:31 Last Admin: 02/13/17 23:40 Dose: 999 mls/hr Vancomycin HCl 1 gm/Vancomycin HCl 250 mg/ Sodium Chloride 500 mls @ 333.333 mls/hr IV Q12H [facility] Sodium Chloride (Normal Saline) 1,000 mls @ 999 mls/hr IV ASDIRECTED [facility] Magnesium Sulfate 2 gm/ Premix 50 mls @ 25 mls/hr IV ONETIME ONE Stop: 02/14/17 10:16 Last Admin: 02/14/17 11:48 Dose: 25 mls/hr Ibuprofen (Motrin) 600 mg PO Q6H PRN PRN Reason: Pain (moderate 4-6) Last Admin: 02/14/17 00:27 Dose: 600 mg Iopamidol (Isovue-300 (61%)) 100 ml IVPUSH ONETIME ONE Stop: 02/14/17 09:04 Last Admin: 02/14/17 09:49 Dose: 100 ml Ketorolac Tromethamine (Toradol) 30 mg IVPUSH ONETIME ONE Stop: 02/13/17 11:37 Last Admin: 02/13/17 11:42 Dose: 30 mg Ketorolac Tromethamine (Toradol) 30 mg IV Q6H PRN PRN Reason: Pain (moderate 4-6) Last Admin: 02/13/17 17:58 Dose: 30 mg Ketorolac Tromethamine (Toradol) 30 mg IVPUSH Q6H [facility] Last Admin: 02/14/17 11:31 Dose: Not Given Ketorolac Tromethamine (Toradol) 15 mg IVPUSH Q6H [facility] Last Admin: 02/14/17 13:22 Dose: 15 mg Sodium Chloride (Saline Flush) 10 ml FLUSH ONETIME PRN PRN Reason: IV FLUSH Stop: 02/14/17 16:00 Last Admin: 02/14/17 09:50 Dose: 10 ml - Exam Quality Assessment: DVT Prophylaxis General: Alert, Oriented, Cooperative, No Acute Distress HEENT: Pupils Equal, EOMI, Mucous Membr. Moist/Parchment Neck: Supple Lungs: Clear to Auscultation, Normal Respiratory Effort, Decreased Breath Sounds (mid to lower lobes) Cardiovascular: Regular Rate, Regular Rhythm GI/Abdominal Exam: Normal Bowel Sounds, Soft, Non-Tender (Male) Exam: Deferred Peripheral Pulses: 2+: Radial (L), Radial (R) Neurological: No New Focal Deficit Psy/Mental Status: Alert, Normal Affect, Normal Mood - Problem List & Annotations (1) Cellulitis of hand SNOMED Code(s): 36653682 Code(s): L03.119 - CELLULITIS OF UNSPECIFIED PART OF LIMB Status: Acute Priority: High Current Visit: Yes (2) Tobacco use disorder SNOMED Code(s): 852268782 Code(s): F17.200 - NICOTINE DEPENDENCE, UNSPECIFIED, UNCOMPLICATED Status: Chronic Priority: Medium Current Visit: Yes (3) Elevated troponin SNOMED Code(s): 843159010 Code(s): R74.8 - ABNORMAL LEVELS OF OTHER SERUM ENZYMES Status: Acute Priority: High Current Visit: Yes - Problem List Review Problem List Initiated/Reviewed/Updated: Yes - My Orders Last 24 Hours: My Active Orders 02/14/17 17:48 EKG 12 Lead [EKG Documentation Completion] [RC] STAT - Plan Plan:: I/P: Cellulitis of Rt hand -IV Rocephin rec'd in ED, switched to vanco and zosyn. -Florastor -Xray of wrist obtained with degenerative changes noted and diffuse soft tissue swelling posteriorly -CT of arm obtained today -Diffuse subcutaneous soft tissue edema with skin thickening. Findings felt compatible with rather prominent cellulitis. -Venous doppler of Rt UE in ED and was negative for blood clot/DVT -Dr. Bailey, Orthopedics was consulted in ED and did not feel there was tendon involvement. Formal consult has been placed. -Elevate -Pain medications and NSAIDS PRN - Toradol scheduled -Lactic acid 2.5 -->2.4 -CRP 6.0-->7.0 -Has hx/o right shoulder arthroplasty. Again, Dr. Bailey consulted -CK 155 -Telemetry ordered Elevated troponin -Ordered troponin due to persistent hypotension and episode of SOB overnight which resolved quickly -0.059-->0.102-->0.173--> 0.203; CKMB have been normal, last at 2.2; will recheck trop and CKMB later today. -Repeat ordered last night and was unchanged. -12-lead EKG obtained and shows NSR at 83 BPM with Q waves in V1 and V2. -Case management attempting to locate prior EKG for comparison -Denies CP, palpitations, or SOB -Continue to monitor Hypomagnesemia--resolved -Mg 1.6 today -Supplemented this AM -Continue to monitor Chronic conditions: IBS by hx Anxiety- takes ativan at home, PRN ordered here. Other: GI prophylax with pepcid DVT prohylax with Teds/ambulation CM/SW for assist with dc planning Patient is full code status.
[2017-02-15] MEDS: Vancomycin 1 GM, Vancomycin 250 MG in Sodium Chloride 0.9% 250 ML IV SCH ×2 (12:04→20:25)
[2017-02-16] MEDS: Vancomycin 1 GM, Vancomycin 250 MG in Sodium Chloride 0.9% 250 ML IV SCH ×3 (04:10→21:20)
[2017-02-16] MEDS: Piperacillin/Tazobactam 4.5 GM in Sodium Chloride 0.9% 100 ML IV SCH ×3 (06:09→23:39)
[2017-02-16] MEDS: Saccharomyces Boulardii (Probiotic) 250 MG Cap PO SCH ×2 (08:07→21:18)
[2017-02-16] MEDS: Nicotine 21 MG/24 Hr Patch TRDERM SCH (08:08)
[2017-02-16] MEDS: PARoxetine 20 MG Tab PO SCH (08:08)
[2017-02-16] MEDS: Famotidine 20 MG Tab PO SCH ×2 (08:08→21:18)
[2017-02-16] MEDS ORDERED: Magnesium Sulfate/Water 2 GM in Premix Bag 1 BAG IV ONE (14:23)
--- NOTE | 2017-02-16 14:33 | PCM.PN ---
- General Info Functional Status: Reports: Pain Controlled, Tolerating Diet, Ambulating, Urinating - Review of Systems General: Reports: No Symptoms HEENT: Reports: No Symptoms Pulmonary: Reports: No Symptoms Cardiovascular: Reports: No Symptoms Gastrointestinal: Reports: No Symptoms Genitourinary: Reports: No Symptoms Musculoskeletal: Reports: No Symptoms Skin: Reports: No Symptoms Neurological: Reports: No Symptoms Psychiatric: Reports: No Symptoms - Patient Data Vitals - Most Recent: Last Vital Signs Temp 36.5 C 02/16/17 08:20 Pulse 56 L 02/16/17 12:34 Resp 14 02/16/17 12:34 BP 112/74 02/16/17 12:34 Pulse Ox 92 L 02/16/17 12:34 Weight - Most Recent: 92.85 kg I&O - Last 24 Hours: Intake & Output 02/15/17 02/16/17 02/16/17 22:59 06:59 14:59 Intake Total 1050 900 300 Output Total 1700 459 Balance -650 441 300 Lab Results Last 24 Hours: Laboratory Results - last 24 hr 02/15/17 02/16/17 02/16/17 Range/Units 14:45 05:40 05:40 WBC 14.82 H (4.23-9.07) K/mm3 RBC 3.93 L (4.63-6.08) M/mm3 Hgb 11.9 L (13.7-17.5) gm/L Hct 35.5 L (40.1-51.0) % MCV 90.3 (79.0-92.2) fl MCH 30.3 (25.7-32.2) pg MCHC 33.5 (32.2-35.5) g/dl RDW Std Deviation 44.7 H (35.1-43.9) fL Plt Count 139 L (163-337) K/mm3 MPV 9.6 (9.4-12.3) fl Neut % (Auto) 86.1 H (34.0-67.9) % Lymph % (Auto) 3.8 L (21.8-53.1) % [place] % (Auto) 7.4 (5.3-12.2) % Eos % (Auto) 2.1 (0.8-7.0) Baso % (Auto) 0.1 (0.1-1.2) % Neut # (Auto) 12.76 H (1.78-5.38) K/mm3 Lymph # (Auto) 0.57 L (1.32-3.57) K/mm3 [place] # (Auto) 1.09 H (0.30-0.82) K/mm3 Eos # (Auto) 0.31 (0.04-0.54) K/mm3 Baso # (Auto) 0.02 (0.01-0.08) K/mm3 Manual Slide Review Abnormal smear Sodium 144 (136-145) mEq/L Potassium 3.4 L (3.5-5.1) mEq/L Chloride 114 H (98-107) mEq/L Carbon Dioxide 21 (21-32) mEq/L Anion Gap 12.4 (5-15) BUN 11 (7-18) mg/dL Creatinine 1.0 (0.7-1.3) mg/dL Est Cr Clr Drug Dosing 76.35 mL/min Estimated GFR (MDRD) > 60 (>60) mL/min BUN/Creatinine Ratio 11.0 L (14-18) Glucose 102 (80-115) mg/dL Lactic Acid (0.4-2.0) mmol/L Calcium 8.0 L (8.5-10.1) mg/dL Magnesium 1.6 L (1.8-2.4) mg/dl CK-MB (CK-2) 1.5 (0-3.6) ng/ml Troponin I 0.153 H* (0.00-0.056) ng/mL C-Reactive Protein 6.1 H* (<1.0) mg/dL Vancomycin Trough (10.0-20.0) 02/16/17 02/16/17 Range/Units 05:40 11:40 WBC (4.23-9.07) K/mm3 RBC (4.63-6.08) M/mm3 Hgb (13.7-17.5) gm/L Hct (40.1-51.0) % MCV (79.0-92.2) fl MCH (25.7-32.2) pg MCHC (32.2-35.5) g/dl RDW Std Deviation (35.1-43.9) fL Plt Count (163-337) K/mm3 MPV (9.4-12.3) fl Neut % (Auto) (34.0-67.9) % Lymph % (Auto) (21.8-53.1) % [place] % (Auto) (5.3-12.2) % Eos % (Auto) (0.8-7.0) Baso % (Auto) (0.1-1.2) % Neut # (Auto) (1.78-5.38) K/mm3 Lymph # (Auto) (1.32-3.57) K/mm3 [place] # (Auto) (0.30-0.82) K/mm3 Eos # (Auto) (0.04-0.54) K/mm3 Baso # (Auto) (0.01-0.08) K/mm3 Manual Slide Review Sodium (136-145) mEq/L Potassium (3.5-5.1) mEq/L Chloride (98-107) mEq/L Carbon Dioxide (21-32) mEq/L Anion Gap (5-15) BUN (7-18) mg/dL Creatinine (0.7-1.3) mg/dL Est Cr Clr Drug Dosing mL/min Estimated GFR (MDRD) (>60) mL/min BUN/Creatinine Ratio (14-18) Glucose (80-115) mg/dL Lactic Acid 1.1 (0.4-2.0) mmol/L Calcium (8.5-10.1) mg/dL Magnesium (1.8-2.4) mg/dl CK-MB (CK-2) (0-3.6) ng/ml Troponin I (0.00-0.056) ng/mL C-Reactive Protein (<1.0) mg/dL Vancomycin Trough 15.1 (10.0-20.0) [place] Results Last 24 Hours: Microbiology 02/14/17 10:15 Aerobic Blood Culture - Preliminary Blood NO GROWTH AFTER 2 DAYS Anaerobic Blood Culture - Preliminary NO GROWTH AFTER 2 DAYS 02/14/17 10:10 Aerobic Blood Culture - Preliminary Blood NO GROWTH AFTER 2 DAYS Anaerobic Blood Culture - Preliminary NO GROWTH AFTER 2 DAYS Med Orders - Current: Current Medications Acetaminophen (Tylenol) 650 mg PO Q4H PRN PRN Reason: Pain (Mild 1-3)/fever Hydrocodone Bitart/Acetaminophen ([place] 325-5 Mg) 1 tab PO Q4H PRN PRN Reason: Pain (moderate 4-6) Famotidine (Pepcid) 20 mg PO BID [facility] Last Admin: 02/16/17 08:08 Dose: 20 mg Hydromorphone HCl (Dilaudid) 0.5 mg IVPUSH Q3H PRN PRN Reason: Severe pain (7-10) Last Admin: 02/13/17 16:23 Dose: 0.5 mg Piperacillin Sod/Tazobactam (Sod 4.5 gm/ Sodium Chloride) 100 mls @ 25 mls/hr IV Q8H [facility] Last Admin: 02/16/17 06:09 Dose: 25 mls/hr Vancomycin HCl 1 gm/Vancomycin HCl 250 mg/ Sodium Chloride 250 mls @ 166 mls/ hr IV Q8H [facility] Last Admin: 02/16/17 12:49 Dose: 166 mls/hr Magnesium Sulfate 2 gm/ Premix 50 mls @ 25 mls/hr IV ONETIME ONE Stop: 02/16/17 16:22 Lorazepam (Ativan) 1 mg PO Q4H PRN PRN Reason: anxiety/restlessness Miscellaneous Information (Remove Patch) 1 ea TRDERM DAILY [facility] Last Admin: 02/16/17 08:10 Dose: Not Given Nicotine (Habitrol) 21 mg TRDERM DAILY [facility] Last Admin: 02/16/17 08:08 Dose: Not Given Ondansetron HCl (Zofran Odt) 4 mg PO Q4H PRN PRN Reason: nausea, able to take PO Paroxetine HCl (Paxil) 20 mg PO DAILY [facility] Last Admin: 02/16/17 08:08 Dose: 20 mg Potassium Chloride (Potassium Chloride) 40 meq PO DAILY [facility] Saccharomyces Boulardii (Florastor) 250 mg PO BID [facility] Last Admin: 02/16/17 08:07 Dose: 250 mg Senna/Docusate Sodium (Senna Plus) 1 tab PO BID PRN PRN Reason: Constipation Sodium Chloride (Saline Flush) 10 ml FLUSH ASDIRECTED PRN PRN Reason: Keep Vein Open Last Admin: 02/13/17 09:43 Dose: 10 ml Temazepam (Restoril) 7.5 mg PO BEDTIME PRN PRN Reason: Sleep Last Admin: 02/14/17 20:52 Dose: 7.5 mg Vancomycin HCl (Pharmacy To Dose - Vancomycin) 1 dose .XX ASDIRECTED [facility] Discontinued Medications Fentanyl (Sublimaze) 100 mcg IVPUSH ONETIME ONE Stop: 02/13/17 10:56 Last Admin: 02/13/17 11:15 Dose: 100 mcg Furosemide (Lasix) 10 mg IVPUSH NOW ONE Stop: 02/15/17 07:48 Last Admin: 02/15/17 08:28 Dose: 10 mg Hydromorphone HCl (Dilaudid) 1 mg IVPUSH ONETIME ONE Stop: 02/13/17 09:25 Last Admin: 02/13/17 09:40 Dose: 1 mg Ceftriaxone Sodium 2 gm/ (Sodium Chloride) 100 mls @ 200 mls/hr IV ONETIME ONE Stop: 02/13/17 09:53 Last Admin: 02/13/17 09:45 Dose: 200 mls/hr Sodium Chloride (Normal Saline) 1,000 mls @ 125 mls/hr IV ASDIRECTED [facility] Last Admin: 02/14/17 21:53 Dose: 125 mls/hr Sodium Chloride (Normal Saline) 500 mls @ 999 mls/hr IV ASDIRECTED [facility] Last Admin: 02/13/17 16:45 Dose: 999 mls/hr Sodium Chloride (Normal Saline) 1,000 mls @ 999 mls/hr IV ASDIRECTED [facility] Last Admin: 02/13/17 22:33 Dose: 999 mls/hr Piperacillin Sod/Tazobactam (Sod 4.5 gm/ Sodium Chloride) 100 mls @ 200 mls/hr IV ONETIME ONE Stop: 02/13/17 18:59 Last Admin: 02/13/17 18:53 Dose: Not Given Piperacillin Sod/Tazobactam (Sod 4.5 gm/ Sodium Chloride) 100 mls @ 200 mls/hr IV ONETIME ONE Stop: 02/13/17 18:59 Last Admin: 02/13/17 18:50 Dose: 200 mls/hr Vancomycin HCl 1 gm/Vancomycin HCl 250 mg/ Sodium Chloride 250 mls @ 250 mls/ hr IV Q12H [facility] Last Admin: 02/13/17 23:58 Dose: Not Given Vancomycin HCl 1 gm/Vancomycin HCl 250 mg/ Sodium Chloride 250 mls @ 250 mls/ hr IV Q12H [facility] Last Admin: 02/13/17 23:58 Dose: Not Given Vancomycin HCl 1 gm/Vancomycin HCl 250 mg/ Sodium Chloride 250 mls @ 250 mls/ hr IV Q12H [facility] Last Admin: 02/13/17 21:00 Dose: 250 mls/hr Sodium Chloride (Normal Saline) 1,000 mls @ 999 mls/hr IV ASDIRECTED [facility] Stop: 02/14/17 22:31 Last Admin: 02/13/17 23:40 Dose: 999 mls/hr Vancomycin HCl 1 gm/Vancomycin HCl 250 mg/ Sodium Chloride 500 mls @ 333.333 mls/hr IV Q12H [facility] Sodium Chloride (Normal Saline) 1,000 mls @ 999 mls/hr IV ASDIRECTED [facility] Magnesium Sulfate 2 gm/ Premix 50 mls @ 25 mls/hr IV ONETIME ONE Stop: 02/14/17 10:16 Last Admin: 02/14/17 11:48 Dose: 25 mls/hr Vancomycin HCl 1 gm/Vancomycin HCl 250 mg/ Sodium Chloride 250 mls @ 166.667 mls/hr IV Q12H [facility] Stop: 02/15/17 14:00 Last Admin: 02/15/17 12:04 Dose: 166.667 mls/hr Ibuprofen (Motrin) 600 mg PO Q6H PRN PRN Reason: Pain (moderate 4-6) Last Admin: 02/14/17 00:27 Dose: 600 mg Iopamidol (Isovue-300 (61%)) 100 ml IVPUSH ONETIME ONE Stop: 02/14/17 09:04 Last Admin: 02/14/17 09:49 Dose: 100 ml Ketorolac Tromethamine (Toradol) 30 mg IVPUSH ONETIME ONE Stop: 02/13/17 11:37 Last Admin: 02/13/17 11:42 Dose: 30 mg Ketorolac Tromethamine (Toradol) 30 mg IV Q6H PRN PRN Reason: Pain (moderate 4-6) Last Admin: 02/13/17 17:58 Dose: 30 mg Ketorolac Tromethamine (Toradol) 30 mg IVPUSH Q6H [facility] Last Admin: 02/14/17 11:31 Dose: Not Given Ketorolac Tromethamine (Toradol) 15 mg IVPUSH Q6H [facility] Last Admin: 02/14/17 13:22 Dose: 15 mg Ketorolac Tromethamine (Toradol) 15 mg IVPUSH Q6H PRN PRN Reason: Pain Last Admin: 02/15/17 21:21 Dose: 15 mg Sodium Chloride (Saline Flush) 10 ml FLUSH ONETIME PRN PRN Reason: IV FLUSH Stop: 02/14/17 16:00 Last Admin: 02/14/17 09:50 Dose: 10 ml - Exam Quality Assessment: DVT Prophylaxis General: Alert, Oriented, Cooperative, No Acute Distress HEENT: Pupils Equal, Pupils Reactive, EOMI Neck: Supple, Trachea Midline Lungs: Normal Respiratory Effort Cardiovascular: Regular Rate, Regular Rhythm GI/Abdominal Exam: Normal Bowel Sounds, Soft, Non-Tender, No Organomegaly, No Distention (Male) Exam: Deferred Back Exam: Normal Inspection Extremities: Normal Inspection, Joint Swelling, Arm Pain, Limited Range of Motion, Increased Warmth (improved) Skin: Warm Wound/Incisions: No Drainage, Erythema Improving Neurological: No New Focal Deficit, Normal Gait, Normal Speech Psy/Mental Status: Alert, Normal Affect, Normal Mood - Problem List Review Problem List Initiated/Reviewed/Updated: Yes - My Orders Last 24 Hours: My Active Orders 02/16/17 14:23 Magnesium Sulfate/Water [Magnesium Sulfate 2 GM in Water 50 ML] 2 gm Premix Bag 1 bag IV ONETIME 02/16/17 14:30 Potassium Chloride 40 meq PO DAILY - Plan Plan:: I/P: Cellulitis of Rt hand-->neurovasc intact -IV Rocephin rec'd in ED, switched to vanco and zosyn; site or type of injury is unknown -Florastor -Xray of wrist obtained with degenerative changes noted and diffuse soft tissue swelling posteriorly -CT of arm obtained today -Diffuse subcutaneous soft tissue edema with skin thickening. Findings felt compatible with rather prominent cellulitis. -Venous doppler of Rt UE in ED and was negative for blood clot/DVT -Dr. Bailey, Orthopedics was consulted in ED and did not feel there was tendon involvement. Formal consult has been placed. -Elevate -Pain medications and NSAIDS PRN - Toradol scheduled -Lactic acid 2.5 -->2.4 -CRP 6.0-->7.0 -Has hx/o right shoulder arthroplasty. Again, Dr. Bailey consulted -CK 155 Elevated troponin-->secondary to infection Hypomagnesemia--resolved -Mg 1.6 today -Supplemented this AM -Continue to monitor Chronic conditions: IBS by hx Anxiety- takes ativan at home, PRN ordered here. Other: GI prophylax with pepcid DVT prohylax with Teds/ambulation CM/SW for assist with dc planning Patient is full code status. LOS>96 hours, slowly responding to IV ATB
[2017-02-16] MEDS: Potassium Chloride 10% 20 MEQ/15 ML Soln 30 ML UD Cup PO SCH (15:42)
[2017-02-16] MEDS: LORazepam 1 MG Tab PO PRN (21:19)
[2017-02-16] MEDS: Ketorolac 30 MG/ML SDV IVPUSH PRN (21:20)
[2017-02-17] MEDS: Ketorolac 30 MG/ML SDV IVPUSH PRN (03:44)
[2017-02-17] MEDS: Vancomycin 1 GM, Vancomycin 250 MG in Sodium Chloride 0.9% 250 ML IV SCH ×3 (03:50→20:21)
[2017-02-17] MEDS: Piperacillin/Tazobactam 4.5 GM in Sodium Chloride 0.9% 100 ML IV SCH ×3 (06:00→21:52)
[2017-02-17] MEDS: Potassium Chloride 10% 20 MEQ/15 ML Soln 30 ML UD Cup PO SCH (08:49)
[2017-02-17] MEDS: PARoxetine 20 MG Tab PO SCH (08:49)
[2017-02-17] MEDS: Saccharomyces Boulardii (Probiotic) 250 MG Cap PO SCH ×2 (08:49→21:53)
[2017-02-17] MEDS: Famotidine 20 MG Tab PO SCH ×2 (08:49→21:53)
[2017-02-17] MEDS: Nicotine 21 MG/24 Hr Patch TRDERM SCH (08:50)
--- NOTE | 2017-02-17 13:48 | PCM.PN ---
- General Info Date of Service: 02/17/17 Subjective Update: SWELLING AND ERYTHEM IN HAND IS LESS Functional Status: Reports: Pain Controlled - Review of Systems General: Reports: No Symptoms HEENT: Reports: No Symptoms Pulmonary: Reports: Shortness of Breath (WITH AMBULATION) Cardiovascular: Reports: No Symptoms Gastrointestinal: Reports: No Symptoms Genitourinary: Reports: No Symptoms Musculoskeletal: Reports: No Symptoms Skin: Reports: No Symptoms Neurological: Reports: No Symptoms Psychiatric: Reports: No Symptoms - Patient Data Vitals - Most Recent: Last Vital Signs Temp 98.1 F 02/17/17 08:56 Pulse 61 02/17/17 08:56 Resp 14 02/17/17 08:52 BP 99/63 02/17/17 08:52 Pulse Ox 94 L 02/17/17 08:56 Weight - Most Recent: 205 lb 1.6 oz I&O - Last 24 Hours: Intake & Output 02/16/17 02/17/17 02/17/17 22:59 06:59 14:59 Intake Total 2480 1400 Output Total 2500 1475 Balance -20 -75 [place] Results Last 24 Hours: Microbiology 02/14/17 10:15 Aerobic Blood Culture - Preliminary Blood NO GROWTH AFTER 3 DAYS Anaerobic Blood Culture - Preliminary NO GROWTH AFTER 3 DAYS 02/14/17 10:10 Aerobic Blood Culture - Preliminary Blood NO GROWTH AFTER 3 DAYS Anaerobic Blood Culture - Preliminary NO GROWTH AFTER 3 DAYS Med Orders - Current: Current Medications Acetaminophen (Tylenol) 650 mg PO Q4H PRN PRN Reason: Pain (Mild 1-3)/fever Hydrocodone Bitart/Acetaminophen ([place] 325-5 Mg) 1 tab PO Q4H PRN PRN Reason: Pain (moderate 4-6) Famotidine (Pepcid) 20 mg PO BID [facility] Last Admin: 02/17/17 08:49 Dose: 20 mg Hydromorphone HCl (Dilaudid) 0.5 mg IVPUSH Q3H PRN PRN Reason: Severe pain (7-10) Last Admin: 02/13/17 16:23 Dose: 0.5 mg Piperacillin Sod/Tazobactam (Sod 4.5 gm/ Sodium Chloride) 100 mls @ 25 mls/hr IV Q8H [facility] Last Admin: 02/17/17 06:00 Dose: 25 mls/hr Vancomycin HCl 1 gm/Vancomycin HCl 250 mg/ Sodium Chloride 250 mls @ 166 mls/ hr IV Q8H [facility] Last Admin: 02/17/17 12:18 Dose: 166 mls/hr Ketorolac Tromethamine (Toradol) 30 mg IVPUSH Q6H PRN PRN Reason: Pain Last Admin: 02/17/17 03:44 Dose: 30 mg Lorazepam (Ativan) 1 mg PO Q4H PRN PRN Reason: anxiety/restlessness Last Admin: 02/16/17 21:19 Dose: 1 mg Miscellaneous Information (Remove Patch) 1 ea TRDERM DAILY [facility] Last Admin: 02/17/17 08:50 Dose: Not Given Nicotine (Habitrol) 21 mg TRDERM DAILY [facility] Last Admin: 02/17/17 08:50 Dose: Not Given Ondansetron HCl (Zofran Odt) 4 mg PO Q4H PRN PRN Reason: nausea, able to take PO Paroxetine HCl (Paxil) 20 mg PO DAILY [facility] Last Admin: 02/17/17 08:49 Dose: 20 mg Potassium Chloride (Potassium Chloride) 40 meq PO DAILY [facility] Stop: 02/18/17 09:01 Last Admin: 02/17/17 08:49 Dose: 40 meq Saccharomyces Boulardii (Florastor) 250 mg PO BID [facility] Last Admin: 02/17/17 08:49 Dose: 250 mg Senna/Docusate Sodium (Senna Plus) 1 tab PO BID PRN PRN Reason: Constipation Sodium Chloride (Saline Flush) 10 ml FLUSH ASDIRECTED PRN PRN Reason: Keep Vein Open Last Admin: 02/13/17 09:43 Dose: 10 ml Temazepam (Restoril) 7.5 mg PO BEDTIME PRN PRN Reason: Sleep Last Admin: 02/14/17 20:52 Dose: 7.5 mg Vancomycin HCl (Pharmacy To Dose - Vancomycin) 1 dose .XX ASDIRECTED [facility] Discontinued Medications Fentanyl (Sublimaze) 100 mcg IVPUSH ONETIME ONE Stop: 02/13/17 10:56 Last Admin: 02/13/17 11:15 Dose: 100 mcg Furosemide (Lasix) 10 mg IVPUSH NOW ONE Stop: 02/15/17 07:48 Last Admin: 02/15/17 08:28 Dose: 10 mg Hydromorphone HCl (Dilaudid) 1 mg IVPUSH ONETIME ONE Stop: 02/13/17 09:25 Last Admin: 02/13/17 09:40 Dose: 1 mg Ceftriaxone Sodium 2 gm/ (Sodium Chloride) 100 mls @ 200 mls/hr IV ONETIME ONE Stop: 02/13/17 09:53 Last Admin: 02/13/17 09:45 Dose: 200 mls/hr Sodium Chloride (Normal Saline) 1,000 mls @ 125 mls/hr IV ASDIRECTED [facility] Last Admin: 02/14/17 21:53 Dose: 125 mls/hr Sodium Chloride (Normal Saline) 500 mls @ 999 mls/hr IV ASDIRECTED [facility] Last Admin: 02/13/17 16:45 Dose: 999 mls/hr Sodium Chloride (Normal Saline) 1,000 mls @ 999 mls/hr IV ASDIRECTED [facility] Last Admin: 02/13/17 22:33 Dose: 999 mls/hr Piperacillin Sod/Tazobactam (Sod 4.5 gm/ Sodium Chloride) 100 mls @ 200 mls/hr IV ONETIME ONE Stop: 02/13/17 18:59 Last Admin: 02/13/17 18:53 Dose: Not Given Piperacillin Sod/Tazobactam (Sod 4.5 gm/ Sodium Chloride) 100 mls @ 200 mls/hr IV ONETIME ONE Stop: 02/13/17 18:59 Last Admin: 02/13/17 18:50 Dose: 200 mls/hr Vancomycin HCl 1 gm/Vancomycin HCl 250 mg/ Sodium Chloride 250 mls @ 250 mls/ hr IV Q12H [facility] Last Admin: 02/13/17 23:58 Dose: Not Given Vancomycin HCl 1 gm/Vancomycin HCl 250 mg/ Sodium Chloride 250 mls @ 250 mls/ hr IV Q12H [facility] Last Admin: 02/13/17 23:58 Dose: Not Given Vancomycin HCl 1 gm/Vancomycin HCl 250 mg/ Sodium Chloride 250 mls @ 250 mls/ hr IV Q12H [facility] Last Admin: 02/13/17 21:00 Dose: 250 mls/hr Sodium Chloride (Normal Saline) 1,000 mls @ 999 mls/hr IV ASDIRECTED [facility] Stop: 02/14/17 22:31 Last Admin: 02/13/17 23:40 Dose: 999 mls/hr Vancomycin HCl 1 gm/Vancomycin HCl 250 mg/ Sodium Chloride 500 mls @ 333.333 mls/hr IV Q12H [facility] Sodium Chloride (Normal Saline) 1,000 mls @ 999 mls/hr IV ASDIRECTED [facility] Magnesium Sulfate 2 gm/ Premix 50 mls @ 25 mls/hr IV ONETIME ONE Stop: 02/14/17 10:16 Last Admin: 02/14/17 11:48 Dose: 25 mls/hr Vancomycin HCl 1 gm/Vancomycin HCl 250 mg/ Sodium Chloride 250 mls @ 166.667 mls/hr IV Q12H [facility] Stop: 02/15/17 14:00 Last Admin: 02/15/17 12:04 Dose: 166.667 mls/hr Magnesium Sulfate 2 gm/ Premix 50 mls @ 25 mls/hr IV ONETIME ONE Stop: 02/16/17 16:22 Last Admin: 02/16/17 14:33 Dose: 25 mls/hr Ibuprofen (Motrin) 600 mg PO Q6H PRN PRN Reason: Pain (moderate 4-6) Last Admin: 02/14/17 00:27 Dose: 600 mg Iopamidol (Isovue-300 (61%)) 100 ml IVPUSH ONETIME ONE Stop: 02/14/17 09:04 Last Admin: 02/14/17 09:49 Dose: 100 ml Ketorolac Tromethamine (Toradol) 30 mg IVPUSH ONETIME ONE Stop: 02/13/17 11:37 Last Admin: 02/13/17 11:42 Dose: 30 mg Ketorolac Tromethamine (Toradol) 30 mg IV Q6H PRN PRN Reason: Pain (moderate 4-6) Last Admin: 02/13/17 17:58 Dose: 30 mg Ketorolac Tromethamine (Toradol) 30 mg IVPUSH Q6H [facility] Last Admin: 02/14/17 11:31 Dose: Not Given Ketorolac Tromethamine (Toradol) 15 mg IVPUSH Q6H [facility] Last Admin: 02/14/17 13:22 Dose: 15 mg Ketorolac Tromethamine (Toradol) 15 mg IVPUSH Q6H PRN PRN Reason: Pain Last Admin: 02/15/17 21:21 Dose: 15 mg Sodium Chloride (Saline Flush) 10 ml FLUSH ONETIME PRN PRN Reason: IV FLUSH Stop: 02/14/17 16:00 Last Admin: 02/14/17 09:50 Dose: 10 ml - Exam General: Alert, Oriented HEENT: Pupils Equal, Pupils Reactive, EOMI, Mucous Membr. Moist/[place] Neck: Supple Lungs: Clear to Auscultation, Normal Respiratory Effort Cardiovascular: Regular Rate, Regular Rhythm GI/Abdominal Exam: Normal Bowel Sounds, Soft, Non-Tender, No Organomegaly, No Distention, No Abnormal Bruit, No Mass, Pelvis Stable Extremities: Normal Inspection, Normal Range of Motion, Non-Tender, No Pedal Edema, Normal Capillary Refill Skin: Warm, Other (REDNESS IS LESS IN RIGHT HAND ) Wound/Incisions: Healing Well Neurological: No New Focal Deficit Psy/Mental Status: Alert, Normal Affect, Normal Mood - Problem List Review Problem List Initiated/Reviewed/Updated: Yes - My Orders Last 24 Hours: My Active Orders 02/18/17 05:11 BMP [BASIC METABOLIC PANEL,BMP] [CHEM] AM CBC WITH AUTO DIFF [HEME] AM MAGNESIUM [CHEM] AM 02/18/17 12:26 Echo Comp wo Cont [US] Routine 02/19/17 05:11 BMP [BASIC METABOLIC PANEL,BMP] [CHEM] AM CBC WITH AUTO DIFF [HEME] AM MAGNESIUM [CHEM] AM 02/20/17 05:11 BMP [BASIC METABOLIC PANEL,BMP] [CHEM] AM CBC WITH AUTO DIFF [HEME] AM MAGNESIUM [CHEM] AM 02/21/17 05:11 BMP [BASIC METABOLIC PANEL,BMP] [CHEM] AM CBC WITH AUTO DIFF [HEME] AM MAGNESIUM [CHEM] AM 02/22/17 05:11 CBC WITH AUTO DIFF [HEME] AM - Plan Plan:: I/P: Cellulitis of Rt hand-->neurovasc intact -IV Rocephin rec'd in ED, switched to vanco and zosyn; site or type of injury is unknown -CT of arm obtained -->Diffuse subcutaneous soft tissue edema with skin thickening. Findings felt compatible with rther prominent cellulitis. -Venous doppler of Rt UE in ED and was negative for blood clot/DVT -Dr. Bailey, Orthopedics was consulted in ED and did not feel there was tendon involvement. Formal consult has been placed. -Elevate -Pain medications and NSAIDS PRN - Toradol scheduled Elevated troponin-->secondary to infection WILL GET AN ECHO Hypomagnesemia--resolved -Mg 1.6 today -Supplemented this AM -Continue to monitor Chronic conditions: IBS by hx Anxiety- takes ativan at home, PRN ordered here. Other: GI prophylax with pepcid DVT prohylax with Teds/ambulation CM/SW for assist with dc planning Patient is full code status. LOS>96 hours, slowly responding to IV ATB DISPO: HOME ON AM?
[2017-02-17] MEDS ORDERED: Simvastatin 10 MG Tab PO SCH (21:00)
[2017-02-17] MEDS: LORazepam 1 MG Tab PO PRN (21:52)
[2017-02-18] MEDS: Vancomycin 1 GM, Vancomycin 250 MG in Sodium Chloride 0.9% 250 ML IV SCH (04:52)
[2017-02-18] MEDS ORDERED: Furosemide 20 MG/2 ML VIAL ONE (06:22)
[2017-02-18] MEDS ORDERED: Furosemide 20 MG/2 ML VIAL IV ONE (06:30)
--- NOTE | 2017-02-18 07:43 | PCM.DCSUM1 ---
Discharge Summary - Hospital Course Free Text/Narrative:: Jw is a 66yo male admitted to inpatient status from the ED this afternoon after presenting with acute onset of right hand and wrist swelling and pain last evening around 8pm. He did not get much sleep last night due to the pain. He denies f/c/s, no n/v/d. He is very tired and fatigued but no other systemic symptoms or constitutional symptoms. He tells me he is unsure what happened, no falls or scratches recently, however he has had some old abrasions on his hand for a while now, also unsure of how he got them. He plays tennis regularly but no recent falls or accidents with that. He has hx of anxiety for which he takes prozac and ativan PRN. He smokes around a pack of cigarettes per day. Patient is Full Code status PCP is Dr. Zhang with [place] [id number] Patient was treated with Vancomycin and Zosyn x 5 days, he had slow response to treatment. BC were negative. No wound cultures were obtained as there was no wound or drainage to be cultured. He had mild elevation of troponins, no anginal symptoms/equivalents, EKG's were unchanged, troponin trended down. He is started on baby ASA. Labs improved with WBC and CRP. Creatinine did bump up on day of discharge. Magnesium was borderline low, replaced. He will be dc'd on magnesium daily. He is to have recheck of labs within 48 hours with CBC, BMP and magnesium with results to PCP, Dr. Zhang. He had echocardiogram done while in hospital, results are pending and will also be forwarded to PCP. Per Dr. Muñiz recommendations for stress testing as outpatient. He will be discharged on Clindamycin PO per Dr. Muñiz for possible MRSA coverage, florastor. He is to follow up with PCP within 2-3 days of discharge for recheck of hand. On day of discharge hand appears at least 60-70% improved from day of admission by my review. - Discharge Data Discharge Date: 02/18/17 (admit date 02/14/17) Discharge Disposition: Home, Self-Care 01 Condition: Good - Discharge Diagnosis/Problem(s) (1) Cellulitis of hand SNOMED Code(s): 52611266 ICD Code: L03.119 - CELLULITIS OF UNSPECIFIED PART OF LIMB Status: Acute Priority: High Current Visit: Yes (2) Tobacco use disorder SNOMED Code(s): 075982112 ICD Code: F17.200 - NICOTINE DEPENDENCE, UNSPECIFIED, UNCOMPLICATED Status : Chronic Priority: Medium Current Visit: Yes (3) Elevated troponin SNOMED Code(s): 514114164 ICD Code: R74.8 - ABNORMAL LEVELS OF OTHER SERUM ENZYMES Status: Acute Priority: High Current Visit: Yes - Patient Summary/Data Operative Procedure(s) Performed: None Complications: None Consults: Orthopedics, Dr. Bailey- Consult Labs Pending at D/C: Echocardiogram result; will call patient with result and forward report to PCP, Dr. Zhang Recommended Follow-up Testing/Procedures: Patient DC instructions: Take antibiotics as instructed; complete entire course. Take with food. Follow up with Dr. Zhang within 5 days of discharge for recheck of hand. Elevate hand when able. Please check when last tetanus shot, if >5 years recommend Tdap vaccine; source of infection is unclear. Follow up labs in 48 hours, CBC, BMP and magnesium; rx written for labs Will send echocardiogram report to PCP, Dr. Zhang when available. Follow up with PCP for these results. Recommend stress test as outpatient to r/o cardiac disease--high risk, smoker, age 66, HLD. Planned Operative Procedure(s) after DC: None Hospital Course: As above - Patient Instructions Diet: Heart Healthy Diet, Drink 8-10+ Glasses/Day Activity: As Tolerated Driving: May Drive Today Showering/Bathing: May Shower Notify Provider of: Fever, Increased Pain, Swelling and Redness Other/Special Instructions: Recommend stop smoking; [place] Quit line offeres free services and products, can call [phone] for more information. - Discharge Plan Prescriptions/Med Rec: Aspirin 81 mg PO DAILY #30 tab.chew Clindamycin HCl 300 mg PO TID #18 capsule Famotidine [Pepcid] 20 mg PO BID #60 tablet L Acidophil/B Lactis/B Longum [Florajen3] 460 mg PO DAILY #30 capsule Magnesium Oxide 400 mg PO DAILY #30 tablet Nicotine [Habitrol] 21 mg TRDERM DAILY #30 patch Simvastatin [Zocor] 10 mg PO BEDTIME #30 tablet Home Medications: Home Meds LORazepam 1 mg PO DAILY 02/13/17 [History] PARoxetine HCl [Paxil] 20 mg PO DAILY 02/13/17 [History] Aspirin 81 mg PO DAILY #30 tab.chew 02/18/17 [Rx] Clindamycin HCl 300 mg PO TID #18 capsule 02/18/17 [Rx] Famotidine [Pepcid] 20 mg PO BID #60 tablet 02/18/17 [Rx] L Acidophil/B Lactis/B Longum [Florajen3] 460 mg PO DAILY #30 capsule 02/18/17 [ Rx] Magnesium Oxide 400 mg PO DAILY #30 tablet 02/18/17 [Rx] Nicotine [Habitrol] 21 mg TRDERM DAILY #30 patch 02/18/17 [Rx] Simvastatin [Zocor] 10 mg PO BEDTIME #30 tablet 02/18/17 [Rx] Patient Handouts: Smoking Cessation, Tips for Success, Esmz-gc-[id number], Cholesterol, Skxq-oq-Stiz, Smoking Hazards, Hypotension, Rqxv-yn-Yepx, Sepsis, Adult, Cellulitis, Adult, Zquj-oq-Juef, Fat and Cholesterol Restricted Diet, Knuq-ji-Lyau Forms: ED Department Discharge Referrals: Beck Zhang MD [Primary Care Provider] - (Please see Dr. Zhang at [facility] on Saturday at 10:30 AM 02/22/17.) - Discharge Summary/Plan Comment DC Time >30 min.: Yes (40 min) - General Info Date of Service: 02/18/17 Admission Dx/Problem (Free Text: Admission Diagnosis/Problem Admission Diagnosis/Problem Cellulitis and abscess of hand Functional Status: Reports: Pain Controlled, Tolerating Diet, Ambulating, Urinating. Denies: New Symptoms - Review of Systems General: Reports: No Symptoms. Denies: Fever HEENT: Reports: No Symptoms Pulmonary: Reports: No Symptoms. Denies: Shortness of Breath Cardiovascular: Reports: No Symptoms, Dyspnea on Exertion (with ambulation but improving). Denies: Chest Pain, Palpitations Gastrointestinal: Reports: No Symptoms. Denies: Abdominal Pain, Diarrhea, Nausea Genitourinary: Reports: No Symptoms Musculoskeletal: Reports: Arm Pain, Hand Pain Skin: Reports: No Symptoms Neurological: Reports: No Symptoms Psychiatric: Reports: No Symptoms - Patient Data Vitals - Most Recent: Last Vital Signs Temp 97.9 F 02/18/17 01:11 Pulse 70 02/18/17 01:11 Resp 20 02/18/17 01:11 BP 123/84 02/18/17 01:11 Pulse Ox 94 L 02/18/17 01:11 Weight - Most Recent: 203 lb 14.4 oz I&O - Last 24 hours: Intake & Output 02/17/17 02/18/17 02/18/17 22:59 06:59 14:59 Intake Total 3230 2050 Output Total 1800 3600 Balance 1430 -1550 Lab Results - Last 24 hrs: Laboratory Results - last 24 hr 02/18/17 02/18/17 Range/Units 06:16 06:16 WBC 8.89 (4.23-9.07) K/mm3 RBC 3.82 L (4.63-6.08) M/mm3 Hgb 11.7 L (13.7-17.5) gm/L Hct 34.5 L (40.1-51.0) % MCV 90.3 (79.0-92.2) fl MCH 30.6 (25.7-32.2) pg MCHC 33.9 (32.2-35.5) g/dl RDW Std Deviation 44.8 H (35.1-43.9) fL Plt Count 180 (163-337) K/mm3 MPV 9.8 (9.4-12.3) fl Neut % (Auto) 62.2 (34.0-67.9) % Lymph % (Auto) 10.3 L (21.8-53.1) % Emmet % (Auto) 20.5 H (5.3-12.2) % Eos % (Auto) 4.9 (0.8-7.0) Baso % (Auto) 0.4 (0.1-1.2) % Neut # (Auto) 5.52 H (1.78-5.38) K/mm3 Lymph # (Auto) 0.92 L (1.32-3.57) K/mm3 Emmet # (Auto) 1.82 H (0.30-0.82) K/mm3 Eos # (Auto) 0.44 (0.04-0.54) K/mm3 Baso # (Auto) 0.04 (0.01-0.08) K/mm3 Manual Slide Review Abnormal smear Sodium 150 H (136-145) mEq/L Potassium 3.6 (3.5-5.1) mEq/L Chloride 114 H (98-107) mEq/L Carbon Dioxide 23 (21-32) mEq/L Anion Gap 16.6 H (5-15) BUN 11 (7-18) mg/dL Creatinine 1.5 H (0.7-1.3) mg/dL Est Cr Clr Drug Dosing 50.90 mL/min Estimated GFR (MDRD) 47 (>60) mL/min BUN/Creatinine Ratio 7.3 L (14-18) Glucose 106 (80-115) mg/dL Calcium 8.8 (8.5-10.1) mg/dL Magnesium 1.7 L (1.8-2.4) mg/dl GLYNN Results - Last 24 hrs: Microbiology 02/14/17 10:15 Aerobic Blood Culture - Preliminary Blood NO GROWTH AFTER 3 DAYS Anaerobic Blood Culture - Preliminary NO GROWTH AFTER 3 DAYS 02/14/17 10:10 Aerobic Blood Culture - Preliminary Blood NO GROWTH AFTER 3 DAYS Anaerobic Blood Culture - Preliminary NO GROWTH AFTER 3 DAYS Med Orders - Current: Current Medications Acetaminophen (Tylenol) 650 mg PO Q4H PRN PRN Reason: Pain (Mild 1-3)/fever Hydrocodone Bitart/Acetaminophen (P[place]ree 325-5 Mg) 1 tab PO Q4H PRN PRN Reason: Pain (moderate 4-6) Aspirin (Aspirin) 81 mg PO DAILY [facility] Famotidine (Pepcid) 20 mg PO BID [facility] Last Admin: 02/17/17 21:53 Dose: 20 mg Hydromorphone HCl (Dilaudid) 0.5 mg IVPUSH Q3H PRN PRN Reason: Severe pain (7-10) Last Admin: 02/13/17 16:23 Dose: 0.5 mg Piperacillin Sod/Tazobactam (Sod 4.5 gm/ Sodium Chloride) 100 mls @ 25 mls/hr IV Q8H [facility] Last Admin: 02/17/17 21:52 Dose: 25 mls/hr Vancomycin HCl 1 gm/Vancomycin HCl 250 mg/ Sodium Chloride 250 mls @ 166 mls/ hr IV Q8H [facility] Last Admin: 02/18/17 04:52 Dose: 166 mls/hr Ketorolac Tromethamine (Toradol) 30 mg IVPUSH Q6H PRN PRN Reason: Pain Last Admin: 02/17/17 03:44 Dose: 30 mg Lorazepam (Ativan) 1 mg PO Q4H PRN PRN Reason: anxiety/restlessness Last Admin: 02/17/17 21:52 Dose: 1 mg Miscellaneous Information (Remove Patch) 1 ea TRDERM DAILY [facility] Last Admin: 02/17/17 08:50 Dose: Not Given Nicotine (Habitrol) 21 mg TRDERM DAILY [facility] Last Admin: 02/17/17 08:50 Dose: Not Given Ondansetron HCl (Zofran Odt) 4 mg PO Q4H PRN PRN Reason: nausea, able to take PO Paroxetine HCl (Paxil) 20 mg PO DAILY [facility] Last Admin: 02/17/17 08:49 Dose: 20 mg Potassium Chloride (Potassium Chloride) 40 meq PO DAILY [facility] Stop: 02/18/17 09:01 Last Admin: 02/17/17 08:49 Dose: 40 meq Saccharomyces Boulardii (Florastor) 250 mg PO BID [facility] Last Admin: 02/17/17 21:53 Dose: 250 mg Senna/Docusate Sodium (Senna Plus) 1 tab PO BID PRN PRN Reason: Constipation Simvastatin (Zocor) 10 mg PO BEDTIME [facility] Last Admin: 02/17/17 20:26 Dose: Not Given Sodium Chloride (Saline Flush) 10 ml FLUSH ASDIRECTED PRN PRN Reason: Keep Vein Open Last Admin: 02/13/17 09:43 Dose: 10 ml Temazepam (Restoril) 7.5 mg PO BEDTIME PRN PRN Reason: Sleep Last Admin: 02/14/17 20:52 Dose: 7.5 mg Vancomycin HCl (Pharmacy To Dose - Vancomycin) 1 dose .XX ASDIRECTED [facility] Discontinued Medications Fentanyl (Sublimaze) 100 mcg IVPUSH ONETIME ONE Stop: 02/13/17 10:56 Last Admin: 02/13/17 11:15 Dose: 100 mcg Furosemide (Lasix) 10 mg IVPUSH NOW ONE Stop: 02/15/17 07:48 Last Admin: 02/15/17 08:28 Dose: 10 mg Furosemide (Lasix) 20 mg IV NOW ONE Stop: 02/18/17 06:31 Last Admin: 02/18/17 06:44 Dose: 20 mg Furosemide (Lasix) Confirm Administered Dose 20 mg .ROUTE .STK-MED ONE Stop: 02/18/17 06:23 Last Admin: 02/18/17 06:44 Dose: Not Given Hydromorphone HCl (Dilaudid) 1 mg IVPUSH ONETIME ONE Stop: 02/13/17 09:25 Last Admin: 02/13/17 09:40 Dose: 1 mg Ceftriaxone Sodium 2 gm/ (Sodium Chloride) 100 mls @ 200 mls/hr IV ONETIME ONE Stop: 02/13/17 09:53 Last Admin: 02/13/17 09:45 Dose: 200 mls/hr Sodium Chloride (Normal Saline) 1,000 mls @ 125 mls/hr IV ASDIRECTED [facility] Last Admin: 02/14/17 21:53 Dose: 125 mls/hr Sodium Chloride (Normal Saline) 500 mls @ 999 mls/hr IV ASDIRECTED [facility] Last Admin: 02/13/17 16:45 Dose: 999 mls/hr Sodium Chloride (Normal Saline) 1,000 mls @ 999 mls/hr IV ASDIRECTED [facility] Last Admin: 02/13/17 22:33 Dose: 999 mls/hr Piperacillin Sod/Tazobactam (Sod 4.5 gm/ Sodium Chloride) 100 mls @ 200 mls/hr IV ONETIME ONE Stop: 02/13/17 18:59 Last Admin: 02/13/17 18:53 Dose: Not Given Piperacillin Sod/Tazobactam (Sod 4.5 gm/ Sodium Chloride) 100 mls @ 200 mls/hr IV ONETIME ONE Stop: 02/13/17 18:59 Last Admin: 02/13/17 18:50 Dose: 200 mls/hr Vancomycin HCl 1 gm/Vancomycin HCl 250 mg/ Sodium Chloride 250 mls @ 250 mls/ hr IV Q12H [facility] Last Admin: 02/13/17 23:58 Dose: Not Given Vancomycin HCl 1 gm/Vancomycin HCl 250 mg/ Sodium Chloride 250 mls @ 250 mls/ hr IV Q12H [facility] Last Admin: 02/13/17 23:58 Dose: Not Given Vancomycin HCl 1 gm/Vancomycin HCl 250 mg/ Sodium Chloride 250 mls @ 250 mls/ hr IV Q12H [facility] Last Admin: 02/13/17 21:00 Dose: 250 mls/hr Sodium Chloride (Normal Saline) 1,000 mls @ 999 mls/hr IV ASDIRECTED TONY Stop: 02/14/17 22:31 Last Admin: 02/13/17 23:40 Dose: 999 mls/hr Vancomycin HCl 1 gm/Vancomycin HCl 250 mg/ Sodium Chloride 500 mls @ 333.333 mls/hr IV Q12H [facility] Sodium Chloride (Normal Saline) 1,000 mls @ 999 mls/hr IV ASDIRECTED [facility] Magnesium Sulfate 2 gm/ Premix 50 mls @ 25 mls/hr IV ONETIME ONE Stop: 02/14/17 10:16 Last Admin: 02/14/17 11:48 Dose: 25 mls/hr Vancomycin HCl 1 gm/Vancomycin HCl 250 mg/ Sodium Chloride 250 mls @ 166.667 mls/hr IV Q12H [facility] Stop: 02/15/17 14:00 Last Admin: 02/15/17 12:04 Dose: 166.667 mls/hr Magnesium Sulfate 2 gm/ Premix 50 mls @ 25 mls/hr IV ONETIME ONE Stop: 02/16/17 16:22 Last Admin: 02/16/17 14:33 Dose: 25 mls/hr Ibuprofen (Motrin) 600 mg PO Q6H PRN PRN Reason: Pain (moderate 4-6) Last Admin: 02/14/17 00:27 Dose: 600 mg Iopamidol (Isovue-300 (61%)) 100 ml IVPUSH ONETIME ONE Stop: 02/14/17 09:04 Last Admin: 02/14/17 09:49 Dose: 100 ml Ketorolac Tromethamine (Toradol) 30 mg IVPUSH ONETIME ONE Stop: 02/13/17 11:37 Last Admin: 02/13/17 11:42 Dose: 30 mg Ketorolac Tromethamine (Toradol) 30 mg IV Q6H PRN PRN Reason: Pain (moderate 4-6) Last Admin: 02/13/17 17:58 Dose: 30 mg Ketorolac Tromethamine (Toradol) 30 mg IVPUSH Q6H [facility] Last Admin: 02/14/17 11:31 Dose: Not Given Ketorolac Tromethamine (Toradol) 15 mg IVPUSH Q6H [facility] Last Admin: 02/14/17 13:22 Dose: 15 mg Ketorolac Tromethamine (Toradol) 15 mg IVPUSH Q6H PRN PRN Reason: Pain Last Admin: 02/15/17 21:21 Dose: 15 mg Sodium Chloride (Saline Flush) 10 ml FLUSH ONETIME PRN PRN Reason: IV FLUSH Stop: 02/14/17 16:00 Last Admin: 02/14/17 09:50 Dose: 10 ml - Exam Quality Assessment: Reports: DVT Prophylaxis General: Reports: Alert, Oriented, Cooperative, No Acute Distress HEENT: Reports: Pupils Equal, Pupils Reactive, Mucous Membr. Moist/[place] Neck: Reports: Supple Lungs: Reports: Clear to Auscultation, Normal Respiratory Effort, Decreased Breath Sounds (bases) Cardiovascular: Reports: Regular Rate, Regular Rhythm GI/Abdominal Exam: Normal Bowel Sounds, Soft, Non-Tender (Male) Exam: Deferred Rectal (Males) Exam: Deferred Extremities: Normal Inspection, Arm Pain (moderate amt of swelling to dorsum of hand, much improved from when I saw him last on Saturday. CMS is + and = bilat. ) Neurological: Reports: No New Focal Deficit Psy/Mental Status: Reports: Alert, Normal Affect, Normal Mood *Q Meaningful Use (DIS) - VTE *Q VTE Criteria *Q: - Stroke *Q Stroke Criteria *Q: - AMI *Q AMI Criteria *Q:
[2017-02-18] MEDS: Piperacillin/Tazobactam 4.5 GM in Sodium Chloride 0.9% 100 ML IV SCH (08:05)
[2017-02-18] MEDS: Saccharomyces Boulardii (Probiotic) 250 MG Cap PO SCH (08:24)
[2017-02-18] MEDS: PARoxetine 20 MG Tab PO SCH (08:24)
[2017-02-18] MEDS: Potassium Chloride 10% 20 MEQ/15 ML Soln 30 ML UD Cup PO SCH (08:24)
[2017-02-18] MEDS: Nicotine 21 MG/24 Hr Patch TRDERM SCH (08:24)
[2017-02-18] MEDS: Famotidine 20 MG Tab PO SCH (08:24)
[2017-02-18] MEDS ORDERED: Aspirin 81 MG Tab.Chew PO SCH (09:00)
[2017-02-18] MEDS ORDERED: Magnesium Oxide 400 MG Tab PO SCH (09:15)
[2017-02-18] MEDS ORDERED: Diphtheria,Pertussis(Acell),Tetanus Vaccine 0.5 ML SDV IM ONE (12:00)
--- NOTE | 2017-02-19 13:21 | PCM.CONS ---
H&P History of Present Illness - General Date of Service: 02/13/17 Admit Problem/Dx: Admission Diagnosis/Problem Admission Diagnosis/Problem Cellulitis and abscess of hand Source of Information: Patient, Family, Provider - History of Present Illness Initial Comments - Free Text/Narative: This is a 66 year old gentleman who comes in with right hand pain and swelling. Patient was diagnosed with cellulitis by the Ed and was admitted by medicine to begin IV antibiotics. We were subsequently consulted to make sure surgical intervention was not warranted. Patient states last night and yesterday he had increasing right hand swelling and pain and was unable to sleep much. Patient denies any scratch or injury but has had some abrasions on his hand. He has had low fevers. Right Hand Pain Score (Numeric/FACES): 2 - Related Data Allergies/Adverse Reactions: Allergies Allergy/AdvReac Type Severity Reaction Status Date / Time bee venom protein (honey bee) Allergy Swelling Verified 02/13/17 09:04 Home Medications: Home Meds LORazepam 1 mg PO DAILY 02/13/17 [History] PARoxetine HCl [Paxil] 20 mg PO DAILY 02/13/17 [History] Aspirin 81 mg PO DAILY #30 tab.chew 02/18/17 [Rx] Clindamycin HCl 300 mg PO TID #18 capsule 02/18/17 [Rx] Famotidine [Pepcid] 20 mg PO BID #60 tablet 02/18/17 [Rx] L Acidophil/B Lactis/B Longum [Florajen3] 460 mg PO DAILY #30 capsule 02/18/17 [ Rx] Magnesium Oxide 400 mg PO DAILY #30 tablet 02/18/17 [Rx] Nicotine [Habitrol] 21 mg TRDERM DAILY #30 patch 02/18/17 [Rx] Simvastatin [Zocor] 10 mg PO BEDTIME #30 tablet 02/18/17 [Rx] Past Medical History HEENT History: Reports: Impaired Vision Other HEENT History: wears glasses Gastrointestinal History: Reports: Other (See Below) Other Gastrointestinal History: IBS - Past Surgical History HEENT Surgical History: Reports: Tonsillectomy Musculoskeletal Surgical History: Reports: Arthroscopic Knee, Shoulder Surgery Other Musculoskeletal Surgeries/Procedures:: 3 shoulder surgery Social & Family History - Tobacco Use Smoking Status *Q: Current Every Day Smoker Years of Tobacco use: 50 Packs/Tins Daily: 1 - Caffeine Use Caffeine Use: Reports: Coffee, Soda - Recreational Drug Use Recreational Drug Use: No H&P Review of Systems - Review of Systems: Review Of Systems: ROS reveals no pertinent complaints other than HPI. Exam - Exam Exam: See Below - Vital Signs Vital Signs: Last Vital Signs Temp 36.7 C 02/18/17 08:13 Pulse 72 02/18/17 08:13 Resp 18 02/18/17 08:13 BP 121/80 02/18/17 08:13 Pulse Ox 90 L 02/18/17 08:13 Weight: 92.487 kg - Exam Physical Exam Comments:: RUE: patient has streaking to the midforearm, full elbow rom and wrist rom without pain, he has fusiform swelling over the dorsum of the right hand, no fluctuance is noted, skin is intact with no drainage, able to flex and extend fingers and feels tight, no pain to palpation over flexor tendons, otherwise neurovascularly intact - Patient Data Result Diagrams: 02/18/17 06:16 02/18/17 06:16 Maicol Results Last 24 hrs: Microbiology 02/14/17 10:15 Aerobic Blood Culture - Preliminary Blood NO GROWTH AFTER 5 DAYS Anaerobic Blood Culture - Preliminary NO GROWTH AFTER 5 DAYS 02/14/17 10:10 Aerobic Blood Culture - Preliminary Blood NO GROWTH AFTER 5 DAYS Anaerobic Blood Culture - Preliminary NO GROWTH AFTER 5 DAYS Consult PN Assessment/Plan Procedures: Procedures APPLY FOREARM SPLINT (02/14/17) ASSAY OF CK (CPK) (02/14/17) ASSAY OF LACTIC ACID (02/14/17) ASSAY OF MAGNESIUM (02/14/17) ASSAY OF TROPONIN QUANT (02/14/17) ASSAY OF VANCOMYCIN (02/14/17) BLOOD CULTURE FOR BACTERIA (02/14/17) C-REACTIVE PROTEIN (02/14/17) COMPLETE CBC W/AUTO DIFF WBC (02/14/17) COMPREHEN METABOLIC PANEL (02/14/17) CREATINE MB FRACTION (02/14/17) CT MAXILLOFACIAL W/O DYE (11/09/13) CT UPPER EXTREMITY W/DYE (02/14/17) CULTURE AEROBIC IDENTIFY (03/25/15) CULTURE OTHR SPECIMN AEROBIC (03/25/15) DRAIN/INJ JOINT/BURSA W/O US (03/27/16) ELECTROCARDIOGRAM TRACING (02/14/17) EMERGENCY DEPT VISIT (02/14/17) EXTREMITY STUDY (02/14/17) HYDRATE IV INFUSION ADD-ON (02/14/17) IMMUNIZATION ADMIN (02/14/17) LIPID PANEL (02/14/17) METABOLIC PANEL TOTAL CA (02/14/17) MICROBE SUSCEPTIBLE MAICOL (03/25/15) RBC SED RATE AUTOMATED (02/14/17) ROUTINE VENIPUNCTURE (02/14/17) TDAP VACCINE 7 YRS/> IM (02/14/17) THER/PROPH/DIAG IV INF INIT (02/14/17) TISSUE EXAM BY PATHOLOGIST (11/24/13) TTE W/DOPPLER COMPLETE (02/14/17) TX/PRO/DX INJ NEW DRUG ADDON (02/14/17) X-RAY EXAM OF KNEE 1 OR 2 (08/05/15) X-RAY EXAM OF KNEES (08/05/15) X-RAY EXAM OF WRIST (02/14/17) Problem List Initiated/Reviewed/Updated: Yes Plan: A: right hand cellulitis P: At this time I do not believe the patient has an active abscess and this is most likely cellulitis. If the patient has increasing symptoms or does not respond to the antibiotics i would recommend a CT or MRI looking for possible abscess. Until that time recommend IV antibiotics per medicine with rest, ice and elevation. Will follow up with patient this week.
== END 2017-02-18 12:47 | disposition home or self-care (01) | DRG 603 ==
LOC: JD.ED 08:38 → UNDOADMIN 13:43 → JD.MS 13:43
PROVIDERS: ADMIT Internal Medicine Cardiovascular Disease; ATTEND Internal Medicine Cardiovascular Disease
DX: L03.113 Cellulitis of right upper limb (principal); F17.210 Nicotine dependence, cigarettes, uncomplicated; I95.9 Hypotension, unspecified; R74.8 Abnormal levels of other serum enzymes; E83.42 Hypomagnesemia; F41.9 Anxiety disorder, unspecified; Z96.611 Presence of right artificial shoulder joint; Z91.030 Bee allergy status; Z79.899 Other long term (current) drug therapy
CPT/HCPCS: 29125; 36415 ×2; 73100; 80048; 80053; 83605; 83735; 84484; 85025 ×2; 85652; 86140 ×2; 87040 ×2; 93971; 96361; 96365; 96375; 99285; A9270; J0696; J1170; J1885; J3010; J7030; J7040 ×3; J7050; 73201-26-RT; 73201-RT; 80061; 80202; 82550; 82553; 90471; 90715; 93005; 93306; 99284-25; J1940; J2543; J3370; J3475; Q9967